=== PATIENT | male | born 1955 | race Caucasian/White ===

== ENCOUNTER → 2018-03-09 | Outpatient (CLI) | payer OTHER ==
[2016-03-20 13:04] VITALS: BP 138/84
[~2018-03-09] MED LIST: BENZ1TAB5 PO; CLON1TAB11 PO; ERGO50007 PO; HALO2TAB PO; HYDR-79 PO; Ibuprofen PO; LEVO50TA5 PO; LEVO75TA5 PO; LITH300C PO; PANT40TA5 PO; POLY17PO29 PO; QUET100T4 PO; QUET200T PO; SIMV40TA3 PO; TAMS0.4C2 PO; TRAZ-85 PO; haldol; lithium
--- NOTE | 2018-03-09 13:25 | RAD ---
Abdominal ultrasound, 03/09/2018: HISTORY: Transaminitis The gallbladder is within normal limits in size. There is no sonographic evidence of cholelithiasis. The common hepatic duct is of normal caliber. The liver is enlarged measuring 19-20 cm in craniocaudad extent at the level of the right lobe. It demonstrates diffusely increased echogenicity, most commonly due to fatty change. No hepatic mass is evident. The pancreas was largely obscured by overlying bowel. The visualized portions of the inferior vena cava and aorta are unremarkable. The spleen is at the upper limits of normal in size measuring 14 cm in greatest dimension. There are calcified splenic granulomata. No renal abnormality is detected. No free fluid is evident in the abdomen. IMPRESSION: 1. Hepatomegaly with increased hepatic echogenicity most compatible with hepatic steatosis. 2. The spleen is at the upper limits of normal in size. 3. The abdomen is otherwise unremarkable. Electronically signed by: Daniel Alvarez MD (03/09/2018 1:22 PM) [facility]
== END | disposition home or self-care (01) ==
LOC: US 09:22
PROVIDERS: ATTEND Family Medicine
DX: D73.89 Other diseases of spleen (principal); R16.0 Hepatomegaly, not elsewhere classified
CPT/HCPCS: 76700

== ENCOUNTER 2019-06-01 09:36 | Inpatient (IN) | payer OTHER ==
[~2019-06-01] VITALS: Ht 190.5 cm; Wt 97.2 kg
[~2019-06-01 09:36] MED LIST changes: +CEPH-264 PO; -CLON1TAB11 PO; +CLONAZEPAM1 MG PO; +CYCL5TAB PO; +GABA-689 PO; -HYDR-79 PO; +HYDROCODONE-IB1 EAC3 PO; +KETO15CR2 TP; -PANT40TA5 PO; +PANT40TA77 PO; +SENN-80 PO; +SIMV40TA18 PO; -SIMV40TA3 PO; +TRAZ-118 PO; -TRAZ-85 PO
[2019-06-01] MEDS ORDERED: MORPHINE SULFATE 4 MG/ML VIAL. IV/SQ PRN (11:15)
[2019-06-01] MEDS ORDERED: VANCOMYCIN PER PHARMACY MC ONE (11:15)
[2019-06-01 11:30] LABS: BASO # 0.1 x10^3/uL (0.0-0.2); BASO % 1 % (0-3); EOS # 0.2 x10^3/uL (0.0-0.7); EOS % 3 % (0-3); HEMATOCRIT 44.5 % (39.0-53.0); HEMOGLOBIN 15.3 g/dL (13.0-17.5); LYMPH # 2.1 x10^3/uL (1.0-4.8); LYMPH % 31 % (24-48); MEAN CORPUSCULAR HEMOGLOBIN 33 pg (25-35); MEAN CORPUSCULAR HGB CONC 34 g/dL (31-37); MEAN CORPUSCULAR VOLUME 95 fL (79-100); MONO # 0.6 x10^3/uL (0.0-1.1); MONO % 9 % (0-9); NEUT # 3.7 x10^3/uL (1.8-7.7); NEUT % 56 % (31-73); PLATELET COUNT 201 x10^3/uL (140-400); RED BLOOD COUNT 4.67 x10^6/uL (4.30-5.70); WHITE BLOOD COUNT 6.7 x10^3/uL (4.0-11.0)
[2019-06-01] MEDS: IV NORMAL SALINE 1000ML BAG 1,000 ML IV SCH ×2 (11:38→12:30)
[2019-06-01 11:43] LABS: CALCIUM 9.3 mg/dL (8.5-10.1); GFR 75.2; POTASSIUM 3.9 mmol/L (3.5-5.1)
[2019-06-01] MEDS ORDERED: PIPERACILLIN/TAZOBACTAM 4.5 GM in IV NORMAL SALINE 100ML 100 ML IV ONE (11:45)
[2019-06-01 11:49] LABS: ALBUMIN 4.3 g/dL (3.4-5.0); ALBUMIN/GLOBULIN RATIO 1.1 (1.0-1.7); TOTAL BILIRUBIN 0.5 mg/dL (0.2-1.0); TOTAL PROTEIN 8.2 g/dL (6.4-8.2)
--- NOTE | 2019-06-01 11:51 | RAD ---
EXAM: Bilateral lower extremity venous Doppler sonogram. HISTORY: Cellulitis. Pain and swelling. TECHNIQUE: Ojeda scale and color Doppler sonographic evaluation of the bilateral lower extremity veins with spectral waveform analysis was performed. FINDINGS: The right peroneal veins are not seen. There is normal color flow, normal compressibility and there are normal spectral waveforms in the remainder of the lower extremity veins. IMPRESSION: No Doppler evidence of lower extremity deep venous thrombosis, with nonvisualization of the right peroneal veins. Electronically signed by: Tamra Staples MD (06/01/2019 11:48 AM) [facility]
[2019-06-01] MEDS ORDERED: VANCOMYCIN 2 GM in IV NORMAL SALINE 500ML BAG 500 ML IV ONE (12:00)
[2019-06-01] MEDS ORDERED: ACETAMINOPHEN 325 MG TABLET. PO PRN (13:30)
[2019-06-01] MEDS ORDERED: MORPHINE SULFATE 4 MG/ML VIAL. IV PRN (13:30)
[2019-06-01] MEDS ORDERED: ONDANSETRON PF 4 MG/2 ML VIAL. IV PRN (13:30)
--- NOTE | 2019-06-01 13:39 | PDOC1 ---
History and Physical Date of Admission Date of Admission DATE: 06/01/19 TIME: 13:38 Identification/Chief Complaint Chief Complaint seen in er , 64 year old male patient with history of CVA, ataxia, primarily was chair use for ambulation, hypertension, who presents to the ED today complaining of bilateral lower extremity redness and swelling that began 2 days ago. reports previous history of cellulitis. Denies any fever. Past Medical History CENTRAL NERVOUS SYSTEM: CVA Psych: Anxiety, Psychosis Infectious disease: Other (cellulitis) Renal/: Benign prostatic enlarg. Endocrine: Diabetes Family History Family History: Heart Disease, Hypertension Social History Smoke: Quit ALCOHOL: none Drugs: None Current Medications Current Medications Current Medications Sodium Chloride 1,000 ml @ 2,550 mls/hr Q24M IV Last administered on 06/01/19at 12:30; Start 06/01/19 at 11:11; Stop 06/01/19 at 12:11; Status DC Piperacillin Sod/ Tazobactam Sod 4.5 gm/Sodium Chloride 100 ml @ 200 mls/hr 1X ONCE IV Last administered on 06/01/19at 12:05; Start 06/01/19 at 11:45; Stop 06/01/19 at 12:14; Status DC Vancomycin HCl (Vanco Per Pharmacy) 1 each 1X ONCE MC ; Start 06/01/19 at 11:15; Stop 06/01/19 at 11:24; Status DC Morphine Sulfate (Morphine Sulfate) 4 mg PRN Q15MIN PRN IV/SQ PAIN GREATER THAN 3/10; Start 06/01/19 at 11:15; Stop 06/02/19 at 11:14 Vancomycin HCl 2 gm/Sodium Chloride 500 ml @ 250 mls/hr 1X ONCE IV Last administered on 06/01/19at 13:05; Start 06/01/19 at 12:00; Stop 06/01/19 at 13:59 Ondansetron HCl (Zofran) 4 mg PRN Q8HRS PRN IV NAUSEA/VOMITING; Start 06/01/19 at 13:30; Stop 06/02/19 at 13:29 Morphine Sulfate (Morphine Sulfate) 4 mg PRN Q2HR PRN IV PAIN; Start 06/01/19 at 13:30; Stop 06/02/19 at 13:29 Acetaminophen (Tylenol) 650 mg PRN Q4HRS PRN PO FEVER; Start 06/01/19 at 13:30; Stop 06/02/19 at 13:29 Active Scripts Active Keflex (Cephalexin) 500 Mg Capsule 1 Cap PO TID Reported Gabapentin (Gabapentin) 400 Mg Capsule 400 Mg PO TID Ketoconazole 15 Gm Cream..g. 1 Yudy TP BID PRN Cyclobenzaprine Hcl 5 Mg Tablet 1 Tab PO BID Senna (Sennosides) 8.6 Mg Tablet 8.6 Mg PO HS Hydrocodone-Ibuprofen 7.5-200 (Hydrocodone/Ibuprofen) 1 Each Tablet 1 Tab PO QID PRN Levothyroxine Sodium 75 Mcg Tablet 75 Mcg PO DAILYAC Pantoprazole Sodium (Pantoprazole Sodium) 40 Mg Tablet.dr 40 Mg PO DAILY Trazodone Hcl 50 Mg Tablet 50 Mg PO DAILY Simvastatin 40 Mg Tablet 40 Mg PO HS Seroquel (Quetiapine Fumarate) 100 Mg Tablet 100 Mg PO HS Allergies Allergies: Coded Allergies: lithium (Verified Allergy, Intermediate, 05/12/16) ROS Review of System Review of Systems Review of Systems Constitutional: Denies fever or chills [] Eyes: Denies change in visual acuity, redness, or eye pain [] HENT: Denies nasal congestion or sore throat [] Respiratory: Denies cough or shortness of breath [] Cardiovascular: No additional information not addressed in HPI [] GI: Denies abdominal pain, nausea, vomiting, bloody stools or diarrhea [] : Denies dysuria or hematuria [] Musculoskeletal: Denies back pain or joint pain [] Integument: Reports bilateral lower extremity redness and swelling Neurologic: Denies headache, focal weakness or sensory changes [] 14 PT systems were reviewed and found to be within normal limits, except as documented Neurological: Yes Gait Disturbance Skin: Yes Rash, Yes Skin Lesion Changes Physical Exam Physical Exam Physical Exam Physical Exam Constitutional: Well developed, well nourished, no acute distress, non-toxic appearance. [] HENT: Normocephalic, atraumatic, bilateral external ears normal, oropharynx moist, no oral exudates, nose normal. [] Eyes: PERRLA, EOMI, conjunctiva normal, no discharge. [] Neck: Normal range of motion, no tenderness, supple, no stridor. [] Cardiovascular:Heart rate regular rhythm, no murmur [] Lungs & Thorax: Bilateral breath sounds clear to auscultation [] Abdomen: Bowel sounds normal, soft, no tenderness, no masses, no pulsatile masses. [] Skin: Right dorsal foot with mild redness consistent with cellulitis. Small amount of similar lesions on the left ventral foot, +1 bilateral pedal pulses. Full range of motion to bilateral lower extremities. Back: No tenderness, no CVA tenderness. [] Neurologic: Alert and oriented X 3, no focal deficits noted. [] Psychologic: Affect normal, judgment normal, mood normal. [] General: Alert, Oriented X3, Cooperative, No acute distress HEENT: EOMI, Mucous membr. moist/pink Lungs: Clear to auscultation, Normal air movement Heart: RRR, no thrills Breasts: Not examined Abdomen: Normal bowel sounds, Soft Rectal Exam: not examined PELVIC: Examination not indicated Extremities: No cyanosis Neuro: Normal speech, Cranial nerves 3-12 NL Psych/Mental Status: Mental status NL Vitals Vitals Vital Signs Date Time Temp Pulse Resp B/P (MAP) Pulse Ox O2 Delivery O2 Flow Rate FiO2 06/01/19 10:27 98.4 77 16 143/87 (105) 99 Room Air 98.4 Labs Labs Laboratory Tests Test 06/01/19 11:12 White Blood Count 6.7 x10^3/uL (4.0-11.0) Red Blood Count 4.67 x10^6/uL (4.30-5.70) Hemoglobin 15.3 g/dL (13.0-17.5) Hematocrit 44.5 % (39.0-53.0) Mean Corpuscular Volume 95 fL (79-100) Mean Corpuscular Hemoglobin 33 pg (25-35) Mean Corpuscular Hemoglobin Concent 34 g/dL (31-37) Red Cell Distribution Width 13.0 % (11.5-14.5) Platelet Count 201 x10^3/uL (140-400) Neutrophils (%) (Auto) 56 % (31-73) Lymphocytes (%) (Auto) 31 % (24-48) Monocytes (%) (Auto) 9 % (0-9) Eosinophils (%) (Auto) 3 % (0-3) Basophils (%) (Auto) 1 % (0-3) Neutrophils # (Auto) 3.7 x10^3/uL (1.8-7.7) Lymphocytes # (Auto) 2.1 x10^3/uL (1.0-4.8) Monocytes # (Auto) 0.6 x10^3/uL (0.0-1.1) Eosinophils # (Auto) 0.2 x10^3/uL (0.0-0.7) Basophils # (Auto) 0.1 x10^3/uL (0.0-0.2) Sodium Level 143 mmol/L (136-145) Potassium Level 3.9 mmol/L (3.5-5.1) Chloride Level 104 mmol/L (98-107) Carbon Dioxide Level 29 mmol/L (21-32) Anion Gap 10 (6-14) Blood Urea Nitrogen 15 mg/dL (8-26) Creatinine 1.0 mg/dL (0.7-1.3) Estimated GFR (Cockcroft-Gault) 75.2 BUN/Creatinine Ratio 15 (6-20) Glucose Level 100 mg/dL (70-99) Lactic Acid Level 1.0 mmol/L (0.4-2.0) Calcium Level 9.3 mg/dL (8.5-10.1) Total Bilirubin 0.5 mg/dL (0.2-1.0) Aspartate Amino Transf (AST/SGOT) 45 U/L (15-37) Alanine Aminotransferase (ALT/SGPT) 78 U/L (16-63) Alkaline Phosphatase 72 U/L (46-116) Total Protein 8.2 g/dL (6.4-8.2) Albumin 4.3 g/dL (3.4-5.0) Albumin/Globulin Ratio 1.1 (1.0-1.7) Procalcitonin < 0.10 ng/mL (0.00-0.10) Laboratory Tests Test 06/01/19 11:12 White Blood Count 6.7 x10^3/uL (4.0-11.0) Red Blood Count 4.67 x10^6/uL (4.30-5.70) Hemoglobin 15.3 g/dL (13.0-17.5) Hematocrit 44.5 % (39.0-53.0) Mean Corpuscular Volume 95 fL (79-100) Mean Corpuscular Hemoglobin 33 pg (25-35) Mean Corpuscular Hemoglobin Concent 34 g/dL (31-37) Red Cell Distribution Width 13.0 % (11.5-14.5) Platelet Count 201 x10^3/uL (140-400) Neutrophils (%) (Auto) 56 % (31-73) Lymphocytes (%) (Auto) 31 % (24-48) Monocytes (%) (Auto) 9 % (0-9) Eosinophils (%) (Auto) 3 % (0-3) Basophils (%) (Auto) 1 % (0-3) Neutrophils # (Auto) 3.7 x10^3/uL (1.8-7.7) Lymphocytes # (Auto) 2.1 x10^3/uL (1.0-4.8) Monocytes # (Auto) 0.6 x10^3/uL (0.0-1.1) Eosinophils # (Auto) 0.2 x10^3/uL (0.0-0.7) Basophils # (Auto) 0.1 x10^3/uL (0.0-0.2) Sodium Level 143 mmol/L (136-145) Potassium Level 3.9 mmol/L (3.5-5.1) Chloride Level 104 mmol/L (98-107) Carbon Dioxide Level 29 mmol/L (21-32) Anion Gap 10 (6-14) Blood Urea Nitrogen 15 mg/dL (8-26) Creatinine 1.0 mg/dL (0.7-1.3) Estimated GFR (Cockcroft-Gault) 75.2 BUN/Creatinine Ratio 15 (6-20) Glucose Level 100 mg/dL (70-99) Lactic Acid Level 1.0 mmol/L (0.4-2.0) Calcium Level 9.3 mg/dL (8.5-10.1) Total Bilirubin 0.5 mg/dL (0.2-1.0) Aspartate Amino Transf (AST/SGOT) 45 U/L (15-37) Alanine Aminotransferase (ALT/SGPT) 78 U/L (16-63) Alkaline Phosphatase 72 U/L (46-116) Total Protein 8.2 g/dL (6.4-8.2) Albumin 4.3 g/dL (3.4-5.0) Albumin/Globulin Ratio 1.1 (1.0-1.7) Procalcitonin < 0.10 ng/mL (0.00-0.10) Images Images EXAM: Bilateral lower extremity venous Doppler sonogram. HISTORY: Cellulitis. Pain and swelling. TECHNIQUE: Ojeda scale and color Doppler sonographic evaluation of the bilateral lower extremity veins with spectral waveform analysis was performed. FINDINGS: The right peroneal veins are not seen. There is normal color flow, normal compressibility and there are normal spectral waveforms in the remainder of the lower extremity veins. IMPRESSION: No Doppler evidence of lower extremity deep venous thrombosis, with nonvisualization of the right peroneal veins. Electronically signed by: Tamra Farrar MD (06/01/2019 11:48 AM) [facility] [place] DICTATED and SIGNED BY: TAMRA FARRAR MD DATE: 06/01/19 1148 PATIENT: WILLIAM STONER ACCOUNT: [id number] : 1955 LOCATION: [address] [place] [address] AGE: 64 SEX: M EXAM STATUS: ADM IN ORD. PHYSICIAN: ZULMA CHAPMAN MD REASON: PVD PROCEDURE: DUPLEX LOWER EXTREMITY BILAT DUPLEX LOWER EXTREMITY BILAT Indication: Peripheral vascular disease. Comparison: None. Procedure: Real-time grayscale, color flow Doppler, and Doppler spectral waveform analysis of the arterial system of the lower extremity is performed. Findings: Right lower extremity: No evidence of velocity elevation to suggest stenosis. Monophasic waveform within the right posterior tibial, peroneal, anterior tibial and dorsalis pedis arteries. Triphasic throughout the remainder of the right lower extremity. Left lower extremity: No evidence of velocity elevation to suggest stenosis. Triphasic or biphasic waveforms throughout the left lower extremity. IMPRESSION: 1. 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
[2019-06-01 14:45] VITALS: BP 146/80
--- NOTE | 2019-06-01 15:31 | PHYS DOC ---
Past Medical History Past Medical History: Bipolar, CVA, GERD, High Cholesterol, Hypothyroid, Hepatitis, Prostatitis Additional Past Medical Histor: TRUNCAL ATAXIA, ENCEPHALOPATHY,URINARY OBS,INSOMNIA, NEUROPATHY, LITHIUMTOX Past Surgical History: Appendectomy Additional Past Surgical Histo: unknown Alcohol Use: Rarely Drug Use: None Adult General Chief Complaint Chief Complaint: LOWER EXTREMITY SWELLING HPI HPI Patient is a 64 year old male patient with history of CVA, ataxia, primarily was chair use for ambulation, hypertension, who presents to the ED today complaining of bilateral lower extremity redness and swelling that began 2 days ago. Patient reports previous history of cellulitis. Denies any fever. Review of Systems Review of Systems Constitutional: Denies fever or chills [] Eyes: Denies change in visual acuity, redness, or eye pain [] HENT: Denies nasal congestion or sore throat [] Respiratory: Denies cough or shortness of breath [] Cardiovascular: No additional information not addressed in HPI [] GI: Denies abdominal pain, nausea, vomiting, bloody stools or diarrhea [] : Denies dysuria or hematuria [] Musculoskeletal: Denies back pain or joint pain [] Integument: Reports bilateral lower extremity redness and swelling Neurologic: Denies headache, focal weakness or sensory changes [] All other systems were reviewed and found to be within normal limits, except as documented in this note. Current Medications Current Medications Current Medications Medications (Trade) Dose Ordered Sig/Kleber Start Time Stop Time Status Last Admin Dose Admin Morphine Sulfate (Morphine Sulfate) 4 mg PRN Q15MIN PRN 06/01/19 11:15 06/02/19 11:14 Piperacillin Sod/ Tazobactam Sod 4.5 gm/Sodium Chloride 100 ml @ 200 mls/hr 1X ONCE 06/01/19 11:45 06/01/19 12:14 DC 06/01/19 12:05 200 MLS/HR Sodium Chloride 1,000 ml @ 2,550 mls/hr Q24M 06/01/19 11:11 06/01/19 12:11 DC 06/01/19 12:30 2,550 MLS/HR Vancomycin HCl (Vanco Per Pharmacy) 1 each 1X ONCE 06/01/19 11:15 06/01/19 11:24 DC Vancomycin HCl 2 gm/Sodium Chloride 500 ml @ 250 mls/hr 1X ONCE 06/01/19 12:00 06/01/19 13:59 DC 06/01/19 13:05 250 MLS/HR Allergies Allergies Allergies Coded Allergies Type Severity Reaction Last Updated Verified lithium Allergy Intermediate 05/12/16 Yes Physical Exam Physical Exam Constitutional: Well developed, well nourished, no acute distress, non-toxic appearance. [] HENT: Normocephalic, atraumatic, bilateral external ears normal, oropharynx moist, no oral exudates, nose normal. [] Eyes: PERRLA, EOMI, conjunctiva normal, no discharge. [] Neck: Normal range of motion, no tenderness, supple, no stridor. [] Cardiovascular:Heart rate regular rhythm, no murmur [] Lungs & Thorax: Bilateral breath sounds clear to auscultation [] Abdomen: Bowel sounds normal, soft, no tenderness, no masses, no pulsatile masses. [] Skin: Right dorsal foot with mild redness consistent with cellulitis. Small amount of similar lesions on the left ventral foot, +1 bilateral pedal pulses. Full range of motion to bilateral lower extremities. Back: No tenderness, no CVA tenderness. [] Extremities: No tenderness, no cyanosis, no clubbing, ROM intact, no edema. [] Neurologic: Alert and oriented X 3, normal motor function, normal sensory function, no focal deficits noted. [] Psychologic: Affect normal, judgement normal, mood normal. [] Current Patient Data Vital Signs Vital Signs Date Time Temp Pulse Resp B/P (MAP) Pulse Ox O2 Delivery O2 Flow Rate FiO2 06/01/19 12:33 57 20 122/74 (90) 96 Room Air 06/01/19 10:27 98.4 98.4 Lab Values Laboratory Tests Test 06/01/19 11:12 White Blood Count 6.7 x10^3/uL (4.0-11.0) Red Blood Count 4.67 x10^6/uL (4.30-5.70) Hemoglobin 15.3 g/dL (13.0-17.5) Hematocrit 44.5 % (39.0-53.0) Mean Corpuscular Volume 95 fL (79-100) Mean Corpuscular Hemoglobin 33 pg (25-35) Mean Corpuscular Hemoglobin Concent 34 g/dL (31-37) Red Cell Distribution Width 13.0 % (11.5-14.5) Platelet Count 201 x10^3/uL (140-400) Neutrophils (%) (Auto) 56 % (31-73) Lymphocytes (%) (Auto) 31 % (24-48) Monocytes (%) (Auto) 9 % (0-9) Eosinophils (%) (Auto) 3 % (0-3) Basophils (%) (Auto) 1 % (0-3) Neutrophils # (Auto) 3.7 x10^3/uL (1.8-7.7) Lymphocytes # (Auto) 2.1 x10^3/uL (1.0-4.8) Monocytes # (Auto) 0.6 x10^3/uL (0.0-1.1) Eosinophils # (Auto) 0.2 x10^3/uL (0.0-0.7) Basophils # (Auto) 0.1 x10^3/uL (0.0-0.2) Erythrocyte Sedimentation Rate 10 (0-15) Sodium Level 143 mmol/L (136-145) Potassium Level 3.9 mmol/L (3.5-5.1) Chloride Level 104 mmol/L (98-107) Carbon Dioxide Level 29 mmol/L (21-32) Anion Gap 10 (6-14) Blood Urea Nitrogen 15 mg/dL (8-26) Creatinine 1.0 mg/dL (0.7-1.3) Estimated GFR (Cockcroft-Gault) 75.2 BUN/Creatinine Ratio 15 (6-20) Glucose Level 100 mg/dL (70-99) H Lactic Acid Level 1.0 mmol/L (0.4-2.0) Calcium Level 9.3 mg/dL (8.5-10.1) Total Bilirubin 0.5 mg/dL (0.2-1.0) Aspartate Amino Transferase (AST) 45 U/L (15-37) H Alanine Aminotransferase (ALT) 78 U/L (16-63) H Alkaline Phosphatase 72 U/L (46-116) C-Reactive Protein, Quantitative 4.5 mg/L (0-3.3) H Total Protein 8.2 g/dL (6.4-8.2) Albumin 4.3 g/dL (3.4-5.0) Albumin/Globulin Ratio 1.1 (1.0-1.7) Procalcitonin < 0.10 ng/mL (0.00-0.10) Laboratory Tests 06/01/19 11:12 Laboratory Tests 06/01/19 11:12 EKG EKG [] Radiology/Procedures Radiology/Procedures []PROCEDURE: VENOUS LOWER EXT BILATERAL EXAM: Bilateral lower extremity venous Doppler sonogram. HISTORY: Cellulitis. Pain and swelling. TECHNIQUE: Ojeda scale and color Doppler sonographic evaluation of the bilateral lower extremity veins with spectral waveform analysis was performed. FINDINGS: The right peroneal veins are not seen. There is normal color flow, normal compressibility and there are normal spectral waveforms in the remainder of the lower extremity veins. IMPRESSION: No Doppler evidence of lower extremity deep venous thrombosis, with nonvisualization of the right peroneal veins. Electronically signed by: Tamra Farrar MD (06/01/2019 11:48 AM) [facility] [place] DICTATED and SIGNED BY: TAMRA FARRAR MD DATE: 06/01/19 1148 Course & Med Decision Making Course & Med Decision Making Pertinent Labs and Imaging studies reviewed. (See chart for details) This is a 64-year-old male patient presenting to the ED today with bilateral lower extremity cellulitis. Venous Doppler of bilateral low extremity are negative for any acute findings. CBC with a normal WBC, lactic is normal, CMP with nothing really acute sedimentation rate is normal, CRP 4.5. He was started on antibiotics in the ED. Spoke with Dr. Mae who accepted patient for admission. Dragon Disclaimer Dragon Disclaimer This electronic medical record was generated, in whole or in part, using a voice recognition dictation system. Departure Departure Impression: Primary Impression: Bilateral lower leg cellulitis Disposition: ADMITTED INPATIENT Condition: STABLE Referrals: LESVIA BURGOS MD (PCP) SHIRLENE WILSON APRN Jun 01, 2019 15:31
--- NOTE | 2019-06-01 16:28 | RAD ---
DUPLEX LOWER EXTREMITY BILAT Indication: Peripheral vascular disease. Comparison: None. Procedure: Real-time grayscale, color flow Doppler, and Doppler spectral waveform analysis of the arterial system of the lower extremity is performed. Findings: Right lower extremity: No evidence of velocity elevation to suggest stenosis. Monophasic waveform within the right posterior tibial, peroneal, anterior tibial and dorsalis pedis arteries. Triphasic throughout the remainder of the right lower extremity. Left lower extremity: No evidence of velocity elevation to suggest stenosis. Triphasic or biphasic waveforms throughout the left lower extremity. IMPRESSION: 1. Monophasic waveform within the right posterior tibial, peroneal, anterior tibial and dorsalis pedis arteries, may indicate proximal stenosis Electronically signed by: Shorty Pearce DO (06/01/2019 4:26 PM) [facility]
[2019-06-01 19:00] VITALS: BP 145/87
[2019-06-01] MEDS ORDERED: HYDROcodone/APAP 5/325MG 1 TAB TABLET PO PRN (20:00)
[2019-06-01] MEDS: SIMVASTATIN 40 MG TABLET. PO SCH (20:14)
[2019-06-01] MEDS: QUEtiapine 100 MG TABLET. PO SCH (20:17)
[2019-06-01] MEDS: GABAPENTIN 400 MG CAPSULE. PO SCH (20:17)
[2019-06-01] MEDS: SENNOSIDES 8.6 MG TABLET PO SCH (20:17)
[2019-06-01] MEDS: CYCLOBENZAPRINE 10 MG TABLET. PO SCH (20:18)
[2019-06-01] MEDS: traZODone 50 MG TABLET. PO SCH (20:56)
[2019-06-01 22:31] VITALS: BP 87/45
[2019-06-02 03:00] VITALS: BP 114/73
[2019-06-02 04:50] LABS: BASO # 0.1 x10^3/uL (0.0-0.2); BASO % 1 % (0-3); EOS # 0.2 x10^3/uL (0.0-0.7); EOS % 4 % (0-3); HEMATOCRIT 38.6 % (39.0-53.0); HEMOGLOBIN 13.3 g/dL (13.0-17.5); LYMPH # 2.1 x10^3/uL (1.0-4.8); LYMPH % 33 % (24-48); MEAN CORPUSCULAR HEMOGLOBIN 33 pg (25-35); MEAN CORPUSCULAR HGB CONC 34 g/dL (31-37); MEAN CORPUSCULAR VOLUME 96 fL (79-100); MONO # 0.5 x10^3/uL (0.0-1.1); MONO % 9 % (0-9); NEUT # 3.3 x10^3/uL (1.8-7.7); NEUT % 53 % (31-73); PLATELET COUNT 189 x10^3/uL (140-400); RED BLOOD COUNT 4.04 x10^6/uL (4.30-5.70); RED CELL DISTRIBUTION WIDTH 12.7 % (11.5-14.5); WHITE BLOOD COUNT 6.2 x10^3/uL (4.0-11.0)
[2019-06-02 07:00] VITALS: BP 118/70
[2019-06-02] MEDS ORDERED: traZODone 50 MG TABLET. PO SCH (09:00)
[2019-06-02] MEDS: LEVOTHYROXINE 75 MCG TABLET PO SCH (09:43)
[2019-06-02] MEDS: CYCLOBENZAPRINE 10 MG TABLET. PO SCH ×2 (09:43→20:27)
[2019-06-02] MEDS: GABAPENTIN 400 MG CAPSULE. PO SCH ×3 (09:43→20:27)
[2019-06-02] MEDS: PANTOPRAZOLE 40 MG TABLET.DR. PO SCH (09:44)
--- NOTE | 2019-06-02 09:50 | PDOC ---
Infectious Disease Note Vital Sign Vital Signs Vital Signs Date Time Temp Pulse Resp B/P (MAP) Pulse Ox O2 Delivery O2 Flow Rate FiO2 06/02/19 07:00 97.8 66 16 118/70 (86) 93 Room Air 97.8 Labs Lab Laboratory Tests Test 06/01/19 11:12 06/02/19 03:40 White Blood Count 6.7 x10^3/uL (4.0-11.0) 6.2 x10^3/uL (4.0-11.0) Red Blood Count 4.67 x10^6/uL (4.30-5.70) 4.04 x10^6/uL (4.30-5.70) Hemoglobin 15.3 g/dL (13.0-17.5) 13.3 g/dL (13.0-17.5) Hematocrit 44.5 % (39.0-53.0) 38.6 % (39.0-53.0) Mean Corpuscular Volume 95 fL (79-100) 96 fL (79-100) Mean Corpuscular Hemoglobin 33 pg (25-35) 33 pg (25-35) Mean Corpuscular Hemoglobin Concent 34 g/dL (31-37) 34 g/dL (31-37) Red Cell Distribution Width 13.0 % (11.5-14.5) 12.7 % (11.5-14.5) Platelet Count 201 x10^3/uL (140-400) 189 x10^3/uL (140-400) Neutrophils (%) (Auto) 56 % (31-73) 53 % (31-73) Lymphocytes (%) (Auto) 31 % (24-48) 33 % (24-48) Monocytes (%) (Auto) 9 % (0-9) 9 % (0-9) Eosinophils (%) (Auto) 3 % (0-3) 4 % (0-3) Basophils (%) (Auto) 1 % (0-3) 1 % (0-3) Neutrophils # (Auto) 3.7 x10^3/uL (1.8-7.7) 3.3 x10^3/uL (1.8-7.7) Lymphocytes # (Auto) 2.1 x10^3/uL (1.0-4.8) 2.1 x10^3/uL (1.0-4.8) Monocytes # (Auto) 0.6 x10^3/uL (0.0-1.1) 0.5 x10^3/uL (0.0-1.1) Eosinophils # (Auto) 0.2 x10^3/uL (0.0-0.7) 0.2 x10^3/uL (0.0-0.7) Basophils # (Auto) 0.1 x10^3/uL (0.0-0.2) 0.1 x10^3/uL (0.0-0.2) Erythrocyte Sedimentation Rate 10 (0-15) Sodium Level 143 mmol/L (136-145) Potassium Level 3.9 mmol/L (3.5-5.1) Chloride Level 104 mmol/L (98-107) Carbon Dioxide Level 29 mmol/L (21-32) Anion Gap 10 (6-14) Blood Urea Nitrogen 15 mg/dL (8-26) Creatinine 1.0 mg/dL (0.7-1.3) Estimated GFR (Cockcroft-Gault) 75.2 BUN/Creatinine Ratio 15 (6-20) Glucose Level 100 mg/dL (70-99) Lactic Acid Level 1.0 mmol/L (0.4-2.0) Calcium Level 9.3 mg/dL (8.5-10.1) Total Bilirubin 0.5 mg/dL (0.2-1.0) Aspartate Amino Transf (AST/SGOT) 45 U/L (15-37) Alanine Aminotransferase (ALT/SGPT) 78 U/L (16-63) Alkaline Phosphatase 72 U/L (46-116) C-Reactive Protein, Quantitative 4.5 mg/L (0-3.3) Total Protein 8.2 g/dL (6.4-8.2) Albumin 4.3 g/dL (3.4-5.0) Albumin/Globulin Ratio 1.1 (1.0-1.7) Procalcitonin < 0.10 ng/mL (0.00-0.10) Objective Assessment pt seen, consult dictated Plan Plan of Care / SHIRLEY RAVI MD Jun 02, 2019 09:50
[2019-06-02] MEDS ORDERED: MINERAL OIL/PETROLATUM TOPICAL CREAM 113GM JAR. TP PRN (10:00)
--- NOTE | 2019-06-02 10:24 | CONS ---
DATE OF CONSULTATION: 06/02/2019 REQUESTING PHYSICIAN: Reagan Mae MD REASON FOR CONSULTATION: Bilateral lower extremity cellulitis. HISTORY OF PRESENT ILLNESS: This is a 64-year-old gentleman with truncal ataxia, bipolar disorder, who came in with bilateral dorsal surface of the feet, red, swollen. The patient says if he does not look at it, if he does not know it was red, he does not have any pain, but he feels like he has some pain when he looks at it and he knows it is a mental thing. The patient denies any fever. Denies any nausea, vomiting, diarrhea. Denies any trauma. He does admit he may have been scratching. He does wear his old tennis shoes all the time. The patient denies any other complaints. PAST MEDICAL HISTORY: Positive for truncal ataxia. History of encephalopathy, CVA, gastroesophageal reflux disease, bipolar disorder, hypothyroidism, hyperlipidemia, prostatism, neuropathy. Has had appendicectomy. SOCIAL HISTORY: Negative for smoking, alcohol, illicit drug use. ALLERGIES: HE IS LISTED ALLERGIC TO LITHIUM. CURRENT MEDICATIONS: Reviewed. The patient is on vancomycin. REVIEW OF SYSTEMS: As per the HPI, all other systems reviewed and are negative. PHYSICAL EXAMINATION: GENERAL: Alert and oriented gentleman, not in distress. VITAL SIGNS: Stable, afebrile. HEENT: NAD. NECK: Supple, no JVP, no lymphadenopathy. LUNGS: Clear. HEART: S1, S2 regular. ABDOMEN: Soft, nontender. No organomegaly. EXTREMITIES: Bilateral lower extremity has a dry flaky skin onto the dorsum of the feet with a coarse texture. It is red, swollen, minimal warmth to it. There is no other skin breakdown. No tinea infection between the toes. NEUROLOGIC: The patient is able to move all the extremities. No focal deficit. LABORATORY DATA: White count is 6.2, hemoglobin 13.3, platelets are normal. Sed rate is 10. BUN and creatinine is normal. Lactic acid 1. AST 45, ALT 78. Ultrasound of the lower extremity is unremarkable. IMPRESSION: 1. Bilateral feet at the dorsum redness. This is not classic cellulitis. It could be contact dermatitis. It could be secondary to the scratching. 2. Truncal ataxia. 3. Bipolar disorder. 4. Cerebrovascular accident. 5. Gastroesophageal reflux disease. RECOMMEND: We will use Rocephin IV and steroid cream locally. Supportive care, leg elevation and we will continue to follow. Thank you very much, Dr. Mae, for giving me the opportunity to participate in this patient's care. SHIRLEY RAVI MD DR: ASAD/josephine JOB#: [id number] / [id number]
--- NOTE | 2019-06-02 10:41 | NUR ---
SW following. Discussed with RN, pt from home alone with cat. Pt uses a motorized scooter at home, uses the bus to get around. Pt concerned about anticipated discharge as the buses for him do not run at the weekend. RN advised pt not to worry, just focus on getting better, and [facility] will be able to assist with transportation home if pt discharges at the weekend. Pt on IV abx currently. SW will continue to follow.
[2019-06-02 11:00] VITALS: BP 101/57
--- NOTE | 2019-06-02 11:05 | PDOC ---
PROGRESS NOTES History of Present Illness History of Present Illness VTE Prophylaxis Ordered VTE Prophylaxis Devices: Yes VTE Pharmacological Prophylaxi: Yes Assessment/Plan Assessment/Plan IMPRESSION: Monophasic waveform within the right posterior tibial, peroneal, anterior tibial and dorsalis pedis arteries, may indicate proximal stenosis by doppler 06/01 Cellulitis both FEET , ACUTE RIGHT > LEFT HX SCHIZOPHRENIA Hx of [place] toxicity with persistent discoordination, disequilibrium: recent MRI shows cerebellar atrophy Bipolar disease with depression and anxiety: cont home meds Anemia - likely of chronic disease BPH - cont meds Cerebellar ataxia - known history, plan admit PT/OT id consult vascular surgery consult iv antibiotics, emperic DVT PROPHYLAXIS cont home meds D/W RN Vitals Vitals Vital Signs Date Time Temp Pulse Resp B/P (MAP) Pulse Ox O2 Delivery O2 Flow Rate FiO2 06/02/19 07:00 97.8 66 16 118/70 (86) 93 Room Air 97.8 Physical Exam General: Alert, Oriented X3, Cooperative, No acute distress Lungs: Clear, Other Abdomen: Normal bowel sounds, Soft Extremities: No cyanosis Labs LABS DUPLEX LOWER EXTREMITY BILAT Indication: Peripheral vascular disease. Comparison: None. Procedure: Real-time grayscale, color flow Doppler, and Doppler spectral waveform analysis of the arterial system of the lower extremity is performed. Findings: Right lower extremity: No evidence of velocity elevation to suggest stenosis. Monophasic waveform within the right posterior tibial, peroneal, anterior tibial and dorsalis pedis arteries. Triphasic throughout the remainder of the right lower extremity. Left lower extremity: No evidence of velocity elevation to suggest stenosis. Triphasic or biphasic waveforms throughout the left lower extremity. IMPRESSION: 1. Monophasic waveform within the right posterior tibial, peroneal, anterior tibial and dorsalis pedis arteries, may indicate proximal stenosis Electronically signed by: Shorty Palencia DO (06/01/2019 4:26 PM) [facility] DICTATED and SIGNED BY: SHORTY PALENCIA DO DATE: 06/01/19 1626 Laboratory Tests Test 06/01/19 11:12 06/02/19 03:40 White Blood Count 6.7 x10^3/uL (4.0-11.0) 6.2 x10^3/uL (4.0-11.0) Red Blood Count 4.67 x10^6/uL (4.30-5.70) 4.04 x10^6/uL (4.30-5.70) Hemoglobin 15.3 g/dL (13.0-17.5) 13.3 g/dL (13.0-17.5) Hematocrit 44.5 % (39.0-53.0) 38.6 % (39.0-53.0) Mean Corpuscular Volume 95 fL (79-100) 96 fL (79-100) Mean Corpuscular Hemoglobin 33 pg (25-35) 33 pg (25-35) Mean Corpuscular Hemoglobin Concent 34 g/dL (31-37) 34 g/dL (31-37) Red Cell Distribution Width 13.0 % (11.5-14.5) 12.7 % (11.5-14.5) Platelet Count 201 x10^3/uL (140-400) 189 x10^3/uL (140-400) Neutrophils (%) (Auto) 56 % (31-73) 53 % (31-73) Lymphocytes (%) (Auto) 31 % (24-48) 33 % (24-48) Monocytes (%) (Auto) 9 % (0-9) 9 % (0-9) Eosinophils (%) (Auto) 3 % (0-3) 4 % (0-3) Basophils (%) (Auto) 1 % (0-3) 1 % (0-3) Neutrophils # (Auto) 3.7 x10^3/uL (1.8-7.7) 3.3 x10^3/uL (1.8-7.7) Lymphocytes # (Auto) 2.1 x10^3/uL (1.0-4.8) 2.1 x10^3/uL (1.0-4.8) Monocytes # (Auto) 0.6 x10^3/uL (0.0-1.1) 0.5 x10^3/uL (0.0-1.1) Eosinophils # (Auto) 0.2 x10^3/uL (0.0-0.7) 0.2 x10^3/uL (0.0-0.7) Basophils # (Auto) 0.1 x10^3/uL (0.0-0.2) 0.1 x10^3/uL (0.0-0.2) Erythrocyte Sedimentation Rate 10 (0-15) Sodium Level 143 mmol/L (136-145) Potassium Level 3.9 mmol/L (3.5-5.1) Chloride Level 104 mmol/L (98-107) Carbon Dioxide Level 29 mmol/L (21-32) Anion Gap 10 (6-14) Blood Urea Nitrogen 15 mg/dL (8-26) Creatinine 1.0 mg/dL (0.7-1.3) Estimated GFR (Cockcroft-Gault) 75.2 BUN/Creatinine Ratio 15 (6-20) Glucose Level 100 mg/dL (70-99) Lactic Acid Level 1.0 mmol/L (0.4-2.0) Calcium Level 9.3 mg/dL (8.5-10.1) Total Bilirubin 0.5 mg/dL (0.2-1.0) Aspartate Amino Transf (AST/SGOT) 45 U/L (15-37) Alanine Aminotransferase (ALT/SGPT) 78 U/L (16-63) Alkaline Phosphatase 72 U/L (46-116) C-Reactive Protein, Quantitative 4.5 mg/L (0-3.3) Total Protein 8.2 g/dL (6.4-8.2) Albumin 4.3 g/dL (3.4-5.0) Albumin/Globulin Ratio 1.1 (1.0-1.7) Procalcitonin < 0.10 ng/mL (0.00-0.10) Assessment and Plan Assessmemt and Plan Problems Medical Problems: (1) Bilateral lower leg cellulitis Status: Acute Comment Review of Relevant I have reviewed the following items cornelio (where applicable) has been applied. Labs Laboratory Tests Test 06/01/19 11:12 06/02/19 03:40 White Blood Count 6.7 x10^3/uL (4.0-11.0) 6.2 x10^3/uL (4.0-11.0) Red Blood Count 4.67 x10^6/uL (4.30-5.70) 4.04 x10^6/uL (4.30-5.70) Hemoglobin 15.3 g/dL (13.0-17.5) 13.3 g/dL (13.0-17.5) Hematocrit 44.5 % (39.0-53.0) 38.6 % (39.0-53.0) Mean Corpuscular Volume 95 fL (79-100) 96 fL (79-100) Mean Corpuscular Hemoglobin 33 pg (25-35) 33 pg (25-35) Mean Corpuscular Hemoglobin Concent 34 g/dL (31-37) 34 g/dL (31-37) Red Cell Distribution Width 13.0 % (11.5-14.5) 12.7 % (11.5-14.5) Platelet Count 201 x10^3/uL (140-400) 189 x10^3/uL (140-400) Neutrophils (%) (Auto) 56 % (31-73) 53 % (31-73) Lymphocytes (%) (Auto) 31 % (24-48) 33 % (24-48) Monocytes (%) (Auto) 9 % (0-9) 9 % (0-9) Eosinophils (%) (Auto) 3 % (0-3) 4 % (0-3) Basophils (%) (Auto) 1 % (0-3) 1 % (0-3) Neutrophils # (Auto) 3.7 x10^3/uL (1.8-7.7) 3.3 x10^3/uL (1.8-7.7) Lymphocytes # (Auto) 2.1 x10^3/uL (1.0-4.8) 2.1 x10^3/uL (1.0-4.8) Monocytes # (Auto) 0.6 x10^3/uL (0.0-1.1) 0.5 x10^3/uL (0.0-1.1) Eosinophils # (Auto) 0.2 x10^3/uL (0.0-0.7) 0.2 x10^3/uL (0.0-0.7) Basophils # (Auto) 0.1 x10^3/uL (0.0-0.2) 0.1 x10^3/uL (0.0-0.2) Erythrocyte Sedimentation Rate 10 (0-15) Sodium Level 143 mmol/L (136-145) Potassium Level 3.9 mmol/L (3.5-5.1) Chloride Level 104 mmol/L (98-107) Carbon Dioxide Level 29 mmol/L (21-32) Anion Gap 10 (6-14) Blood Urea Nitrogen 15 mg/dL (8-26) Creatinine 1.0 mg/dL (0.7-1.3) Estimated GFR (Cockcroft-Gault) 75.2 BUN/Creatinine Ratio 15 (6-20) Glucose Level 100 mg/dL (70-99) Lactic Acid Level 1.0 mmol/L (0.4-2.0) Calcium Level 9.3 mg/dL (8.5-10.1) Total Bilirubin 0.5 mg/dL (0.2-1.0) Aspartate Amino Transf (AST/SGOT) 45 U/L (15-37) Alanine Aminotransferase (ALT/SGPT) 78 U/L (16-63) Alkaline Phosphatase 72 U/L (46-116) C-Reactive Protein, Quantitative 4.5 mg/L (0-3.3) Total Protein 8.2 g/dL (6.4-8.2) Albumin 4.3 g/dL (3.4-5.0) Albumin/Globulin Ratio 1.1 (1.0-1.7) Procalcitonin < 0.10 ng/mL (0.00-0.10) Laboratory Tests Test 06/01/19 11:12 06/02/19 03:40 White Blood Count 6.7 x10^3/uL (4.0-11.0) 6.2 x10^3/uL (4.0-11.0) Red Blood Count 4.67 x10^6/uL (4.30-5.70) 4.04 x10^6/uL (4.30-5.70) Hemoglobin 15.3 g/dL (13.0-17.5) 13.3 g/dL (13.0-17.5) Hematocrit 44.5 % (39.0-53.0) 38.6 % (39.0-53.0) Mean Corpuscular Volume 95 fL (79-100) 96 fL (79-100) Mean Corpuscular Hemoglobin 33 pg (25-35) 33 pg (25-35) Mean Corpuscular Hemoglobin Concent 34 g/dL (31-37) 34 g/dL (31-37) Red Cell Distribution Width 13.0 % (11.5-14.5) 12.7 % (11.5-14.5) Platelet Count 201 x10^3/uL (140-400) 189 x10^3/uL (140-400) Neutrophils (%) (Auto) 56 % (31-73) 53 % (31-73) Lymphocytes (%) (Auto) 31 % (24-48) 33 % (24-48) Monocytes (%) (Auto) 9 % (0-9) 9 % (0-9) Eosinophils (%) (Auto) 3 % (0-3) 4 % (0-3) Basophils (%) (Auto) 1 % (0-3) 1 % (0-3) Neutrophils # (Auto) 3.7 x10^3/uL (1.8-7.7) 3.3 x10^3/uL (1.8-7.7) Lymphocytes # (Auto) 2.1 x10^3/uL (1.0-4.8) 2.1 x10^3/uL (1.0-4.8) Monocytes # (Auto) 0.6 x10^3/uL (0.0-1.1) 0.5 x10^3/uL (0.0-1.1) Eosinophils # (Auto) 0.2 x10^3/uL (0.0-0.7) 0.2 x10^3/uL (0.0-0.7) Basophils # (Auto) 0.1 x10^3/uL (0.0-0.2) 0.1 x10^3/uL (0.0-0.2) Erythrocyte Sedimentation Rate 10 (0-15) Sodium Level 143 mmol/L (136-145) Potassium Level 3.9 mmol/L (3.5-5.1) Chloride Level 104 mmol/L (98-107) Carbon Dioxide Level 29 mmol/L (21-32) Anion Gap 10 (6-14) Blood Urea Nitrogen 15 mg/dL (8-26) Creatinine 1.0 mg/dL (0.7-1.3) Estimated GFR (Cockcroft-Gault) 75.2 BUN/Creatinine Ratio 15 (6-20) Glucose Level 100 mg/dL (70-99) Lactic Acid Level 1.0 mmol/L (0.4-2.0) Calcium Level 9.3 mg/dL (8.5-10.1) Total Bilirubin 0.5 mg/dL (0.2-1.0) Aspartate Amino Transf (AST/SGOT) 45 U/L (15-37) Alanine Aminotransferase (ALT/SGPT) 78 U/L (16-63) Alkaline Phosphatase 72 U/L (46-116) C-Reactive Protein, Quantitative 4.5 mg/L (0-3.3) Total Protein 8.2 g/dL (6.4-8.2) Albumin 4.3 g/dL (3.4-5.0) Albumin/Globulin Ratio 1.1 (1.0-1.7) Procalcitonin < 0.10 ng/mL (0.00-0.10) Medications Current Medications Sodium Chloride 1,000 ml @ 2,550 mls/hr Q24M IV Last administered on 06/01/19at 12:30; Start 06/01/19 at 11:11; Stop 06/01/19 at 12:11; Status DC Piperacillin Sod/ Tazobactam Sod 4.5 gm/Sodium Chloride 100 ml @ 200 mls/hr 1X ONCE IV Last administered on 06/01/19at 12:05; Start 06/01/19 at 11:45; Stop 06/01/19 at 12:14; Status DC Vancomycin HCl (Vanco Per Pharmacy) 1 each 1X ONCE MC ; Start 06/01/19 at 11:15; Stop 06/02/19 at 09:50; Status DC Morphine Sulfate (Morphine Sulfate) 4 mg PRN Q15MIN PRN IV/SQ PAIN GREATER THAN 3/10; Start 06/01/19 at 11:15; Stop 06/02/19 at 11:14 Vancomycin HCl 2 gm/Sodium Chloride 500 ml @ 250 mls/hr 1X ONCE IV Last administered on 06/01/19at 13:05; Start 06/01/19 at 12:00; Stop 06/01/19 at 13:59; Status DC Ondansetron HCl (Zofran) 4 mg PRN Q8HRS PRN IV NAUSEA/VOMITING; Start 06/01/19 at 13:30; Stop 06/02/19 at 13:29 Morphine Sulfate (Morphine Sulfate) 4 mg PRN Q2HR PRN IV PAIN; Start 06/01/19 at 13:30; Stop 06/02/19 at 13:29 Acetaminophen (Tylenol) 650 mg PRN Q4HRS PRN PO FEVER; Start 06/01/19 at 13:30; Stop 06/02/19 at 13:29 Gabapentin (Neurontin) 400 mg TID PO Last administered on 06/02/19at 09:43; Start 06/01/19 at 21:00 Ketoconazole (Nizoral 2% Topical) 1 yudy PRN BID PRN TP ITCHING; Start 06/01/19 at 19:45 Levothyroxine Sodium (Synthroid) 75 mcg DAILYAC PO Last administered on 06/02/19at 09:43; Start 06/02/19 at 07:30 Pantoprazole Sodium (Protonix) 40 mg DAILY PO Last administered on 06/02/19at 09:44; Start 06/02/19 at 09:00 Quetiapine Fumarate (SEROquel) 100 mg HS PO Last administered on 06/01/19at 20:17; Start 06/01/19 at 21:00 Sennosides (Senna) 8.6 mg HS PO Last administered on 06/01/19at 20:17; Start at 21:00 Simvastatin (Zocor) 40 mg HS PO Last administered on 06/01/19at 20:14; Start 06/01/19 at 21:00 Trazodone HCl (Desyrel) 50 mg DAILY PO ; Start 06/02/19 at 09:00; Stop 06/01/19 at 20:26; Status DC Cyclobenzaprine HCl (Flexeril) 10 mg BID PO Last administered on 06/02/19at 09:43; Start 06/01/19 at 21:00 Acetaminophen/ Hydrocodone Bitart (Lortab 5/325) 1 tab PRN Q6HRS PRN PO PAIN; Start 06/01/19 at 20:00 Trazodone HCl (Desyrel) 50 mg QHS PO Last administered on 06/01/19at 20:56; Start 06/01/19 at 21:00 Ceftriaxone Sodium (Rocephin) 1 gm Q24H IVP ; Start 06/02/19 at 10:00 Multi-Ingredient Ointment (Hydrocerin Cream) 1 yudy PRN Q1HR PRN TP DRY SKIN / SCALING; Start 06/02/19 at 10:00 Active Scripts Active Keflex (Cephalexin) 500 Mg Capsule 1 Cap PO TID Reported Gabapentin (Gabapentin) 400 Mg Capsule 400 Mg PO TID Ketoconazole 15 Gm Cream..g. 1 Yudy TP BID PRN Cyclobenzaprine Hcl 5 Mg Tablet 1 Tab PO BID Senna (Sennosides) 8.6 Mg Tablet 8.6 Mg PO HS Hydrocodone-Ibuprofen 7.5-200 (Hydrocodone/Ibuprofen) 1 Each Tablet 1 Tab PO QID PRN Levothyroxine Sodium 75 Mcg Tablet 75 Mcg PO DAILYAC Pantoprazole Sodium (Pantoprazole Sodium) 40 Mg Tablet.dr 40 Mg PO DAILY Trazodone Hcl 50 Mg Tablet 50 Mg PO HS Simvastatin 40 Mg Tablet 40 Mg PO HS Seroquel (Quetiapine Fumarate) 100 Mg Tablet 100 Mg PO HS Vitals/I & O Vital Sign - Last 24 Hours 06/01/19 06/01/19 06/01/19 06/01/19 11:33 12:03 12:33 13:03 Pulse 63 62 57 60 Resp 19 20 20 20 B/P (MAP) 119/75 (90) 118/76 (90) 122/74 (90) 126/71 (89) Pulse Ox 96 95 96 97 O2 Delivery Room Air Room Air Room Air Room Air 06/01/19 06/01/19 06/01/19 06/01/19 13:33 14:03 14:45 14:45 Temp 98.1 98.1 Pulse 64 63 72 Resp 16 18 B/P (MAP) 117/69 (85) 126/72 (90) 146/80 (102) Pulse Ox 96 97 97 O2 Delivery Room Air Room Air Room Air Room Air 06/01/19 06/01/19 06/01/19 06/02/19 19:00 20:00 22:31 03:00 Temp 98.1 98.3 98.2 98.1 98.3 98.2 Pulse 74 67 71 Resp 20 19 18 B/P (MAP) 145/87 (106) 87/45 (59) 114/73 (87) Pulse Ox 20 98 94 O2 Delivery Room Air Room Air Room Air Room Air 06/02/19 07:00 Temp 97.8 97.8 Pulse 66 Resp 16 B/P (MAP) 118/70 (86) Pulse Ox 93 O2 Delivery Room Air Intake and Output 06/01/19 06/01/19 06/02/19 15:00 23:00 07:00 Intake Total 1100 ml Output Total 300 ml Balance 1100 ml -300 ml ZULMA CHAPMAN MD Jun 02, 2019 11:04
[2019-06-02] MEDS: cefTRIAXone IV Push 1 GM VIAL. IVP SCH (11:59)
--- NOTE | 2019-06-02 14:44 | PDOC2 ---
CONSULT Date of Consult Date of Consult DATE: 06/02/19 TIME: 14:33 Reason for Consult Reason for Consult: Bilateral lower extremity cellulitis, abnormal doppler Referring Physician Referring Physician: Dr. Ahn Identification/Chief Complaint Chief Complaint Bilateral red swollen feet Right worse than left Source Source: Chart review, Patient History of Present Illness Reason for Visit: This is a 64-year-old gentleman with truncal ataxia, bipolar disorder, who came in with redness, swelling and pain to dorsum bilateral feet. He states that it has been present for 2-3 days. He notes a similar occurrence last year that resolved with antibiotics. He does not ambulate due to his truncal ataxia, he uses a wheelchair. He denies any fever, chills, or recent weight loss. He denies nausea, vomiting or diarrhea. He reports history of stroke related to [place] toxicity. Past Medical History CENTRAL NERVOUS SYSTEM: CVA, Other (truncal ataxia) Psych: Anxiety, Psychosis Infectious disease: Other (cellulitis) Renal/: Benign prostatic enlarg. Endocrine: Diabetes Family History Family History: Heart Disease, Hypertension Social History Quit ALCOHOL: none Drugs: None Current Problem List Problem List Problems Medical Problems: (1) Bilateral lower leg cellulitis Status: Acute Current Medications Current Medications Current Medications Sodium Chloride 1,000 ml @ 2,550 mls/hr Q24M IV Last administered on 06/01/19at 12:30; Start 06/01/19 at 11:11; Stop 06/01/19 at 12:11; Status DC Piperacillin Sod/ Tazobactam Sod 4.5 gm/Sodium Chloride 100 ml @ 200 mls/hr 1X ONCE IV Last administered on 06/01/19at 12:05; Start 06/01/19 at 11:45; Stop 06/01/19 at 12:14; Status DC Vancomycin HCl (Vanco Per Pharmacy) 1 each 1X ONCE MC ; Start 06/01/19 at 11:15; Stop 06/02/19 at 09:50; Status DC Morphine Sulfate (Morphine Sulfate) 4 mg PRN Q15MIN PRN IV/SQ PAIN GREATER THAN 3/10; Start 06/01/19 at 11:15; Stop 06/02/19 at 11:14; Status DC Vancomycin HCl 2 gm/Sodium Chloride 500 ml @ 250 mls/hr 1X ONCE IV Last administered on 06/01/19at 13:05; Start 06/01/19 at 12:00; Stop 06/01/19 at 13:59; Status DC Ondansetron HCl (Zofran) 4 mg PRN Q8HRS PRN IV NAUSEA/VOMITING; Start 06/01/19 at 13:30; Stop 06/02/19 at 13:29; Status DC Morphine Sulfate (Morphine Sulfate) 4 mg PRN Q2HR PRN IV PAIN; Start 06/01/19 at 13:30; Stop 06/02/19 at 13:29; Status DC Acetaminophen (Tylenol) 650 mg PRN Q4HRS PRN PO FEVER; Start 06/01/19 at 13:30; Stop 06/02/19 at 13:29; Status DC Gabapentin (Neurontin) 400 mg TID PO Last administered on 06/02/19at 09:43; Start 06/01/19 at 21:00 Ketoconazole (Nizoral 2% Topical) 1 yudy PRN BID PRN TP ITCHING; Start 06/01/19 at 19:45 Levothyroxine Sodium (Synthroid) 75 mcg DAILYAC PO Last administered on 06/02/19at 09:43; Start 06/02/19 at 07:30 Pantoprazole Sodium (Protonix) 40 mg DAILY PO Last administered on 06/02/19at 09:44; Start 06/02/19 at 09:00 Quetiapine Fumarate (SEROquel) 100 mg HS PO Last administered on 06/01/19at 20:17; Start 06/01/19 at 21:00 Sennosides (Senna) 8.6 mg HS PO Last administered on 06/01/19at 20:17; Start 06/01/19 at 21:00 Simvastatin (Zocor) 40 mg HS PO Last administered on 06/01/19at 20:14; Start 06/01/19 at 21:00 Trazodone HCl (Desyrel) 50 mg DAILY PO ; Start 06/02/19 at 09:00; Stop 06/01/19 at 20:26; Status DC Cyclobenzaprine HCl (Flexeril) 10 mg BID PO Last administered on 06/02/19at 09: 43; Start 06/01/19 at 21:00 Acetaminophen/ Hydrocodone Bitart (Lortab 5/325) 1 tab PRN Q6HRS PRN PO PAIN; Start 06/01/19 at 20:00 Trazodone HCl (Desyrel) 50 mg QHS PO Last administered on 06/01/19at 20:56; Start 06/01/19 at 21:00 Ceftriaxone Sodium (Rocephin) 1 gm Q24H IVP Last administered on 06/02/19at 11:59; Start 06/02/19 at 10:00 Multi-Ingredient Ointment (Hydrocerin Cream) 1 yudy PRN Q1HR PRN TP DRY SKIN / SCALING Last administered on 06/02/19at 11:59; Start 06/02/19 at 10:00 Active Scripts Active Keflex (Cephalexin) 500 Mg Capsule 1 Cap PO TID Reported Gabapentin (Gabapentin) 400 Mg Capsule 400 Mg PO TID Ketoconazole 15 Gm Cream..g. 1 Yudy TP BID PRN Cyclobenzaprine Hcl 5 Mg Tablet 1 Tab PO BID Senna (Sennosides) 8.6 Mg Tablet 8.6 Mg PO HS Hydrocodone-Ibuprofen 7.5-200 (Hydrocodone/Ibuprofen) 1 Each Tablet 1 Tab PO QID PRN Levothyroxine Sodium 75 Mcg Tablet 75 Mcg PO DAILYAC Pantoprazole Sodium (Pantoprazole Sodium) 40 Mg Tablet.dr 40 Mg PO DAILY Trazodone Hcl 50 Mg Tablet 50 Mg PO HS Simvastatin 40 Mg Tablet 40 Mg PO HS Seroquel (Quetiapine Fumarate) 100 Mg Tablet 100 Mg PO HS Allergies Allergies: Coded Allergies: lithium (Verified Allergy, Intermediate, 05/12/16) ROS Review of System GEN: Denies fevers, chills, sweats HEENT: Denies blurred vision, sore throat CV: Denies chest pain RESP: Denies shortness of air, cough GI: Denies n/v/d NEURO: as per HPI MSK: as per HPI Physical Exam Physical Exam Gen.: Alert and oriented 3. Cardiac: Heart rate regular, normal carotid pulses Lungs: CTA, nonlabored respirations. Abdomen: Soft, nontender, nondistended, no palpable masses. Extremities:2+ bilateral radial, femoral and DP pulses Skin: Erythema, swelling dorsum bilateral feet, R>L. Neurological: Motor dysfunction lower extremities. Vitals VITALS Vital Signs Date Time Temp Pulse Resp B/P (MAP) Pulse Ox O2 Delivery O2 Flow Rate FiO2 06/02/19 11:00 97.5 73 14 101/57 (72) 94 Room Air 97.5 Labs Labs Laboratory Tests Test 06/01/19 11:12 06/02/19 03:40 White Blood Count 6.7 x10^3/uL (4.0-11.0) 6.2 x10^3/uL (4.0-11.0) Red Blood Count 4.67 x10^6/uL (4.30-5.70) 4.04 x10^6/uL (4.30-5.70) Hemoglobin 15.3 g/dL (13.0-17.5) 13.3 g/dL (13.0-17.5) Hematocrit 44.5 % (39.0-53.0) 38.6 % (39.0-53.0) Mean Corpuscular Volume 95 fL (79-100) 96 fL (79-100) Mean Corpuscular Hemoglobin 33 pg (25-35) 33 pg (25-35) Mean Corpuscular Hemoglobin Concent 34 g/dL (31-37) 34 g/dL (31-37) Red Cell Distribution Width 13.0 % (11.5-14.5) 12.7 % (11.5-14.5) Platelet Count 201 x10^3/uL (140-400) 189 x10^3/uL (140-400) Neutrophils (%) (Auto) 56 % (31-73) 53 % (31-73) Lymphocytes (%) (Auto) 31 % (24-48) 33 % (24-48) Monocytes (%) (Auto) 9 % (0-9) 9 % (0-9) Eosinophils (%) (Auto) 3 % (0-3) 4 % (0-3) Basophils (%) (Auto) 1 % (0-3) 1 % (0-3) Neutrophils # (Auto) 3.7 x10^3/uL (1.8-7.7) 3.3 x10^3/uL (1.8-7.7) Lymphocytes # (Auto) 2.1 x10^3/uL (1.0-4.8) 2.1 x10^3/uL (1.0-4.8) Monocytes # (Auto) 0.6 x10^3/uL (0.0-1.1) 0.5 x10^3/uL (0.0-1.1) Eosinophils # (Auto) 0.2 x10^3/uL (0.0-0.7) 0.2 x10^3/uL (0.0-0.7) Basophils # (Auto) 0.1 x10^3/uL (0.0-0.2) 0.1 x10^3/uL (0.0-0.2) Erythrocyte Sedimentation Rate 10 (0-15) Sodium Level 143 mmol/L (136-145) Potassium Level 3.9 mmol/L (3.5-5.1) Chloride Level 104 mmol/L (98-107) Carbon Dioxide Level 29 mmol/L (21-32) Anion Gap 10 (6-14) Blood Urea Nitrogen 15 mg/dL (8-26) Creatinine 1.0 mg/dL (0.7-1.3) Estimated GFR (Cockcroft-Gault) 75.2 BUN/Creatinine Ratio 15 (6-20) Glucose Level 100 mg/dL (70-99) Lactic Acid Level 1.0 mmol/L (0.4-2.0) Calcium Level 9.3 mg/dL (8.5-10.1) Total Bilirubin 0.5 mg/dL (0.2-1.0) Aspartate Amino Transf (AST/SGOT) 45 U/L (15-37) Alanine Aminotransferase (ALT/SGPT) 78 U/L (16-63) Alkaline Phosphatase 72 U/L (46-116) C-Reactive Protein, Quantitative 4.5 mg/L (0-3.3) Total Protein 8.2 g/dL (6.4-8.2) Albumin 4.3 g/dL (3.4-5.0) Albumin/Globulin Ratio 1.1 (1.0-1.7) Procalcitonin < 0.10 ng/mL (0.00-0.10) Laboratory Tests Test 06/02/19 03:40 White Blood Count 6.2 x10^3/uL (4.0-11.0) Red Blood Count 4.04 x10^6/uL (4.30-5.70) Hemoglobin 13.3 g/dL (13.0-17.5) Hematocrit 38.6 % (39.0-53.0) Mean Corpuscular Volume 96 fL (79-100) Mean Corpuscular Hemoglobin 33 pg (25-35) Mean Corpuscular Hemoglobin Concent 34 g/dL (31-37) Red Cell Distribution Width 12.7 % (11.5-14.5) Platelet Count 189 x10^3/uL (140-400) Neutrophils (%) (Auto) 53 % (31-73) Lymphocytes (%) (Auto) 33 % (24-48) Monocytes (%) (Auto) 9 % (0-9) Eosinophils (%) (Auto) 4 % (0-3) Basophils (%) (Auto) 1 % (0-3) Neutrophils # (Auto) 3.3 x10^3/uL (1.8-7.7) Lymphocytes # (Auto) 2.1 x10^3/uL (1.0-4.8) Monocytes # (Auto) 0.5 x10^3/uL (0.0-1.1) Eosinophils # (Auto) 0.2 x10^3/uL (0.0-0.7) Basophils # (Auto) 0.1 x10^3/uL (0.0-0.2) Images Images Lower extremity ultrasound Findings: Right lower extremity: No evidence of velocity elevation to suggest stenosis. Monophasic waveform within the right posterior tibial, peroneal, anterior tibial and dorsalis pedis arteries. Triphasic throughout the remainder of the right lower extremity. Left lower extremity: No evidence of velocity elevation to suggest stenosis. Triphasic or biphasic waveforms throughout the left lower extremity. IMPRESSION: 1. Monophasic waveform within the right posterior tibial, peroneal, anterior tibial and dorsalis pedis arteries, may indicate proximal stenosis Assessment/Plan Assessment/Plan 64 year old male with history of truncal ataxia with bilateral lower extremity cellulitis. By physical examination the patient has palpable distal pulses and adequate arterial circulation. No surgical intervention is warranted. Recommend continued antibiotics per ID. Recommend continued wound care with topical cream. Patient seen and examined with Dr. Abad and he agrees with above. Will sign off and be available if questions. MARLI LOCKHART APRN Jun 02, 2019 14:44
[2019-06-02 15:00] VITALS: BP 123/84
--- NOTE | 2019-06-02 17:30 | PDOC ---
Provider Note Provider Note Pt seen and examined with Caitlin Ness NP. I agree with assessment and plan unless otherwise stated. 64 y/o with bilateral cellulitis of the dorsum of both feet. He has 2+ palpable DP pulses and is a nondiabetic. Infectious disease has been consulted. We will follow as necessary but appears to be inflammatory with no evidence of abscess. RAINA JEAN II, MD Jun 02, 2019 17:30
[2019-06-02 19:00] VITALS: BP 107/82
[2019-06-02] MEDS: traZODone 50 MG TABLET. PO SCH (20:27)
[2019-06-02] MEDS: QUEtiapine 100 MG TABLET. PO SCH (20:27)
[2019-06-02] MEDS: SENNOSIDES 8.6 MG TABLET PO SCH (20:27)
[2019-06-02] MEDS: SIMVASTATIN 40 MG TABLET. PO SCH (20:27)
[2019-06-02 23:00] VITALS: BP 112/63
[2019-06-03] MEDS: KETOCONAZOLE 2% TOPICAL CREAM 15GM TUBE. TP PRN ×2 (00:07→10:28)
[2019-06-03 03:00] VITALS: BP 90/58
[2019-06-03 07:00] VITALS: BP 108/72
--- NOTE | 2019-06-03 09:30 | PDOC ---
PROGRESS NOTES History of Present Illness History of Present Illness VTE Prophylaxis Ordered VTE Prophylaxis Devices: Yes VTE Pharmacological Prophylaxi: Yes DISCHARGE DX Assessment/Plan IMPRESSION: Monophasic waveform within the right posterior tibial, peroneal, anterior tibial and dorsalis pedis arteries, may indicate proximal stenosis by doppler 06/01 Cellulitis both FEET , ACUTE RIGHT > LEFT HX SCHIZOPHRENIA Hx of [place] toxicity with persistent discoordination, disequilibrium: recent MRI shows cerebellar atrophy Bipolar disease with depression and anxiety: cont home meds Anemia - likely of chronic disease BPH - cont meds Cerebellar ataxia - known history, plan admit PT/OT id consult vascular surgery consult iv antibiotics, emperic DVT PROPHYLAXIS cont home meds leg elevation po cefdinir and steroid cream D/W RN D/C 06/03 D/C PLANNING 32 MIN Vitals Vitals Vital Signs Date Time Temp Pulse Resp B/P (MAP) Pulse Ox O2 Delivery O2 Flow Rate FiO2 06/03/19 07:00 98.0 70 16 108/72 (84) 94 Room Air 98.0 Physical Exam General: Alert, Oriented X3, Cooperative, No acute distress Heart: Regular rate Lungs: Clear, Other Abdomen: Normal bowel sounds, Soft Extremities: No cyanosis Assessment and Plan Assessmemt and Plan Problems Medical Problems: (1) Bilateral lower leg cellulitis Status: Acute Comment Review of Relevant I have reviewed the following items cornelio (where applicable) has been applied. Labs Laboratory Tests Test 06/01/19 11:12 06/02/19 03:40 White Blood Count 6.7 x10^3/uL (4.0-11.0) 6.2 x10^3/uL (4.0-11.0) Red Blood Count 4.67 x10^6/uL (4.30-5.70) 4.04 x10^6/uL (4.30-5.70) Hemoglobin 15.3 g/dL (13.0-17.5) 13.3 g/dL (13.0-17.5) Hematocrit 44.5 % (39.0-53.0) 38.6 % (39.0-53.0) Mean Corpuscular Volume 95 fL (79-100) 96 fL (79-100) Mean Corpuscular Hemoglobin 33 pg (25-35) 33 pg (25-35) Mean Corpuscular Hemoglobin Concent 34 g/dL (31-37) 34 g/dL (31-37) Red Cell Distribution Width 13.0 % (11.5-14.5) 12.7 % (11.5-14.5) Platelet Count 201 x10^3/uL (140-400) 189 x10^3/uL (140-400) Neutrophils (%) (Auto) 56 % (31-73) 53 % (31-73) Lymphocytes (%) (Auto) 31 % (24-48) 33 % (24-48) Monocytes (%) (Auto) 9 % (0-9) 9 % (0-9) Eosinophils (%) (Auto) 3 % (0-3) 4 % (0-3) Basophils (%) (Auto) 1 % (0-3) 1 % (0-3) Neutrophils # (Auto) 3.7 x10^3/uL (1.8-7.7) 3.3 x10^3/uL (1.8-7.7) Lymphocytes # (Auto) 2.1 x10^3/uL (1.0-4.8) 2.1 x10^3/uL (1.0-4.8) Monocytes # (Auto) 0.6 x10^3/uL (0.0-1.1) 0.5 x10^3/uL (0.0-1.1) Eosinophils # (Auto) 0.2 x10^3/uL (0.0-0.7) 0.2 x10^3/uL (0.0-0.7) Basophils # (Auto) 0.1 x10^3/uL (0.0-0.2) 0.1 x10^3/uL (0.0-0.2) Erythrocyte Sedimentation Rate 10 (0-15) Sodium Level 143 mmol/L (136-145) Potassium Level 3.9 mmol/L (3.5-5.1) Chloride Level 104 mmol/L (98-107) Carbon Dioxide Level 29 mmol/L (21-32) Anion Gap 10 (6-14) Blood Urea Nitrogen 15 mg/dL (8-26) Creatinine 1.0 mg/dL (0.7-1.3) Estimated GFR (Cockcroft-Gault) 75.2 BUN/Creatinine Ratio 15 (6-20) Glucose Level 100 mg/dL (70-99) Lactic Acid Level 1.0 mmol/L (0.4-2.0) Calcium Level 9.3 mg/dL (8.5-10.1) Total Bilirubin 0.5 mg/dL (0.2-1.0) Aspartate Amino Transf (AST/SGOT) 45 U/L (15-37) Alanine Aminotransferase (ALT/SGPT) 78 U/L (16-63) Alkaline Phosphatase 72 U/L (46-116) C-Reactive Protein, Quantitative 4.5 mg/L (0-3.3) Total Protein 8.2 g/dL (6.4-8.2) Albumin 4.3 g/dL (3.4-5.0) Albumin/Globulin Ratio 1.1 (1.0-1.7) Procalcitonin < 0.10 ng/mL (0.00-0.10) Microbiology 06/01/19 Blood Culture - Preliminary, Resulted NO GROWTH AFTER 1 DAY Medications Current Medications Sodium Chloride 1,000 ml @ 2,550 mls/hr Q24M IV Last administered on 06/01/19at 12:30; Start 06/01/19 at 11:11; Stop 06/01/19 at 12:11; Status DC Piperacillin Sod/ Tazobactam Sod 4.5 gm/Sodium Chloride 100 ml @ 200 mls/hr 1X ONCE IV Last administered on 06/01/19at 12:05; Start 06/01/19 at 11:45; Stop 06/01/19 at 12:14; Status DC Vancomycin HCl (Vanco Per Pharmacy) 1 each 1X ONCE MC ; Start 06/01/19 at 11:15; Stop 06/02/19 at 09:50; Status DC Morphine Sulfate (Morphine Sulfate) 4 mg PRN Q15MIN PRN IV/SQ PAIN GREATER THAN 3/10; Start 06/01/19 at 11:15; Stop 06/02/19 at 11:14; Status DC Vancomycin HCl 2 gm/Sodium Chloride 500 ml @ 250 mls/hr 1X ONCE IV Last administered on 06/01/19at 13:05; Start 06/01/19 at 12:00; Stop 06/01/19 at 13:59; Status DC Ondansetron HCl (Zofran) 4 mg PRN Q8HRS PRN IV NAUSEA/VOMITING; Start 06/01/19 at 13:30; Stop 06/02/19 at 13:29; Status DC Morphine Sulfate (Morphine Sulfate) 4 mg PRN Q2HR PRN IV PAIN; Start 06/01/19 at 13:30; Stop 06/02/19 at 13:29; Status DC Acetaminophen (Tylenol) 650 mg PRN Q4HRS PRN PO FEVER; Start 06/01/19 at 13:30; Stop 06/02/19 at 13:29; Status DC Gabapentin (Neurontin) 400 mg TID PO Last administered on 06/02/19at 20:27; Start 06/01/19 at 21:00 Ketoconazole (Nizoral 2% Topical) 1 yudy PRN BID PRN TP ITCHING Last administered on 06/03/19at 00:07; Start 06/01/19 at 19:45 Levothyroxine Sodium (Synthroid) 75 mcg DAILYAC PO Last administered on 06/02/19at 09:43; Start 06/02/19 at 07:30 Pantoprazole Sodium (Protonix) 40 mg DAILY PO Last administered on 06/02/19at 09:44; Start 06/02/19 at 09:00 Quetiapine Fumarate (SEROquel) 100 mg HS PO Last administered on 06/02/19at 20:27; Start 06/01/19 at 21:00 Sennosides (Senna) 8.6 mg HS PO Last administered on 06/02/19at 20:27; Start 06/01/19 at 21:00 Simvastatin (Zocor) 40 mg HS PO Last administered on 06/02/19at 20:27; Start 06/01/19 at 21:00 Trazodone HCl (Desyrel) 50 mg DAILY PO ; Start 06/02/19 at 09:00; Stop 06/01/19 at 20:26; Status DC Cyclobenzaprine HCl (Flexeril) 10 mg BID PO Last administered on 06/02/19at 20:27; Start 06/01/19 at 21:00 Acetaminophen/ Hydrocodone Bitart (Lortab 5/325) 1 tab PRN Q6HRS PRN PO PAIN; Start 06/01/19 at 20:00 Trazodone HCl (Desyrel) 50 mg QHS PO Last administered on 06/02/19at 20:27; Start 06/01/19 at 21:00 Ceftriaxone Sodium (Rocephin) 1 gm Q24H IVP Last administered on 06/02/19at 11:59; Start 06/02/19 at 10:00 Multi-Ingredient Ointment (Hydrocerin Cream) 1 yudy PRN Q1HR PRN TP DRY SKIN / SCALING Last administered on 06/02/19at 11:59; Start 06/02/19 at 10:00 Active Scripts Active Keflex (Cephalexin) 500 Mg Capsule 1 Cap PO TID Reported Gabapentin (Gabapentin) 400 Mg Capsule 400 Mg PO TID Ketoconazole 15 Gm Cream..g. 1 Yudy TP BID PRN Cyclobenzaprine Hcl 5 Mg Tablet 1 Tab PO BID Senna (Sennosides) 8.6 Mg Tablet 8.6 Mg PO HS Hydrocodone-Ibuprofen 7.5-200 (Hydrocodone/Ibuprofen) 1 Each Tablet 1 Tab PO QID PRN Levothyroxine Sodium 75 Mcg Tablet 75 Mcg PO DAILYAC Pantoprazole Sodium (Pantoprazole Sodium) 40 Mg Tablet.dr 40 Mg PO DAILY Trazodone Hcl 50 Mg Tablet 50 Mg PO HS Simvastatin 40 Mg Tablet 40 Mg PO HS Seroquel (Quetiapine Fumarate) 100 Mg Tablet 100 Mg PO HS Vitals/I & O Vital Sign - Last 24 Hours 06/02/19 06/02/19 06/02/19 06/02/19 11:00 15:00 19:00 20:00 Temp 97.5 98.8 98.8 97.5 98.8 98.8 Pulse 73 74 73 Resp 14 16 18 B/P (MAP) 101/57 (72) 123/84 (97) 107/82 (90) Pulse Ox 94 95 96 O2 Delivery Room Air Room Air Room Air 06/02/19 06/03/19 06/03/19 23:00 03:00 07:00 Temp 98.5 97.1 98.0 98.5 97.1 98.0 Pulse 71 72 70 Resp 16 16 16 B/P (MAP) 112/63 (79) 90/58 (69) 108/72 (84) Pulse Ox 95 94 94 O2 Delivery Room Air Intake and Output 06/02/19 06/02/19 06/03/19 15:00 23:00 07:00 Output Total 400 ml 1250 ml 350 ml Balance -400 ml -1250 ml -350 ml ZULMA CHAPMAN MD Jun 03, 2019 09:30
--- NOTE | 2019-06-03 10:15 | PDOC ---
Infectious Disease Note Subjective Subjective feeling better ROS ROS no n/v/d/sob/fever Vital Sign Vital Signs Vital Signs Date Time Temp Pulse Resp B/P (MAP) Pulse Ox O2 Delivery O2 Flow Rate FiO2 06/03/19 07:00 98.0 70 16 108/72 (84) 94 Room Air 98.0 Physical Exam PHYSICAL EXAM PHYSICAL EXAMINATION: GENERAL: Alert and oriented gentleman, not in distress. VITAL SIGNS: Stable, afebrile. HEENT: NAD. NECK: Supple, no JVP, no lymphadenopathy. LUNGS: Clear. HEART: S1, S2 regular. ABDOMEN: Soft, nontender. No organomegaly. EXTREMITIES: Bilateral lower extremity has a dry flaky skin onto the dorsum of the feet with a coarse texture. It is red, swollen, minimal warmth to it. There is no other skin breakdown. No tinea infection between the toes. NEUROLOGIC: The patient is able to move all the extremities. No focal deficit. Labs Micro Microbiology 06/01/19 Blood Culture - Preliminary, Resulted NO GROWTH AFTER 1 DAY Objective Assessment IMPRESSION: 1. Bilateral feet at the dorsum redness. This is not classic cellulitis. It could be contact dermatitis. It could be secondary to the scratching. 2. Truncal ataxia. 3. Bipolar disorder. 4. Cerebrovascular accident. 5. Gastroesophageal reflux disease. Plan Plan of Care ok to d/c home leg elevation po cefdinir and steroid cream SHIRLEY RAVI MD Jun 03, 2019 10:15
--- NOTE | 2019-06-03 10:18 | NUR ---
SW following. Discussed with RN, vascular has signed off, anticipate possible discharge home if abx switched to PO. SW will continue to follow.
[2019-06-03] MEDS: GABAPENTIN 400 MG CAPSULE. PO SCH ×2 (10:27→14:26)
[2019-06-03] MEDS: PANTOPRAZOLE 40 MG TABLET.DR. PO SCH (10:27)
[2019-06-03] MEDS: LEVOTHYROXINE 75 MCG TABLET PO SCH (10:27)
[2019-06-03] MEDS: CYCLOBENZAPRINE 10 MG TABLET. PO SCH (10:27)
[2019-06-03] MEDS: cefTRIAXone IV Push 1 GM VIAL. IVP SCH (10:28)
[2019-06-03 11:00] VITALS: BP 115/67
[2019-06-03 15:00] VITALS: BP 120/77
--- NOTE | 2019-06-03 16:42 | PDOC3 ---
Discharge Summary Date of Admission: Jun 01, 2019 Date of Discharge: Jun 03, 2019 Follow-Up: 3-5 days Admitting Diagnosis comment: DISCHARGE DX Assessment/Plan IMPRESSION: Monophasic waveform within the right posterior tibial, peroneal, anterior tibial and dorsalis pedis arteries, may indicate proximal stenosis by doppler 06/01 Cellulitis both FEET , ACUTE RIGHT > LEFT HX SCHIZOPHRENIA Hx of [place] toxicity with persistent discoordination, disequilibrium: recent MRI shows cerebellar atrophy Bipolar disease with depression and anxiety: cont home meds Anemia - likely of chronic disease BPH - cont meds Cerebellar ataxia - known history, plan admit PT/OT id consult vascular surgery consult iv antibiotics, emperic DVT PROPHYLAXIS cont home meds leg elevation po cefdinir and steroid cream D/W RN D/C 06/03 D/C PLANNING 32 MIN Vitals Vitals Vital Signs Date Time Temp Pulse Resp B/P (MAP) Pulse Ox O2 Delivery O2 Flow Rate FiO2 06/03/19 07:00 98.0 70 16 108/72 (84) 94 Room Air 98.0 Physical Exam General: Alert, Oriented X3, Cooperative, No acute distress Heart: Regular rate Lungs: Clear, Other Abdomen: Normal bowel sounds, Soft Extremities: No cyanosis FINAL DIAGNOSIS Problems Medical Problems: (1) Bilateral lower leg cellulitis Status: Acute Brief Hospital Course Mr. Kimble is a 64 old [sex] who presented with [ FOOT CELLULITIS] CONDITION AT DISCHARGE: Improved Discharge Medications Current Medications Sodium Chloride 1,000 ml @ 2,550 mls/hr Q24M IV Last administered on 06/01/19at 12:30; Start 06/01/19 at 11:11; Stop 06/01/19 at 12:11; Status DC Piperacillin Sod/ Tazobactam Sod 4.5 gm/Sodium Chloride 100 ml @ 200 mls/hr 1X ONCE IV Last administered on 06/01/19at 12:05; Start 06/01/19 at 11:45; Stop 06/01/19 at 12:14; Status DC Vancomycin HCl (Vanco Per Pharmacy) 1 each 1X ONCE MC ; Start 06/01/19 at 11:15; Stop 06/02/19 at 09:50; Status DC Morphine Sulfate (Morphine Sulfate) 4 mg PRN Q15MIN PRN IV/SQ PAIN GREATER THAN 3/10; Start 06/01/19 at 11:15; Stop 06/02/19 at 11:14; Status DC Vancomycin HCl 2 gm/Sodium Chloride 500 ml @ 250 mls/hr 1X ONCE IV Last administered on 06/01/19at 13:05; Start 06/01/19 at 12:00; Stop 06/01/19 at 13:59; Status DC Ondansetron HCl (Zofran) 4 mg PRN Q8HRS PRN IV NAUSEA/VOMITING; Start 06/01/19 at 13:30; Stop 06/02/19 at 13:29; Status DC Morphine Sulfate (Morphine Sulfate) 4 mg PRN Q2HR PRN IV PAIN; Start 06/01/19 at 13:30; Stop 06/02/19 at 13:29; Status DC Acetaminophen (Tylenol) 650 mg PRN Q4HRS PRN PO FEVER; Start 06/01/19 at 13:30; Stop 06/02/19 at 13:29; Status DC Gabapentin (Neurontin) 400 mg TID PO Last administered on 06/03/19at 14:26; Start 06/01/19 at 21:00 Ketoconazole (Nizoral 2% Topical) 1 yudy PRN BID PRN TP ITCHING Last administered on 06/03/19at 10:28; Start 06/01/19 at 19:45 Levothyroxine Sodium (Synthroid) 75 mcg DAILYAC PO Last administered on 06/03/19at 10:27; Start 06/02/19 at 07:30 Pantoprazole Sodium (Protonix) 40 mg DAILY PO Last administered on 06/03/19at 10:27; Start 06/02/19 at 09:00 Quetiapine Fumarate (SEROquel) 100 mg HS PO Last administered on 06/02/19at 20:27; Start 06/01/19 at 21:00 Sennosides (Senna) 8.6 mg HS PO Last administered on 06/02/19at 20:27; Start 06/01/19 at 21:00 Simvastatin (Zocor) 40 mg HS PO Last administered on 06/02/19at 20:27; Start 06/01/19 at 21:00 Trazodone HCl (Desyrel) 50 mg DAILY PO ; Start 06/02/19 at 09:00; Stop 06/01/19 at 20:26; Status DC Cyclobenzaprine HCl (Flexeril) 10 mg BID PO Last administered on 06/03/19at 10:27; Start 06/01/19 at 21:00 Acetaminophen/ Hydrocodone Bitart (Lortab 5/325) 1 tab PRN Q6HRS PRN PO PAIN; Start 06/01/19 at 20:00 Trazodone HCl (Desyrel) 50 mg QHS PO Last administered on 06/02/19at 20:27; Start 06/01/19 at 21:00 Ceftriaxone Sodium (Rocephin) 1 gm Q24H IVP Last administered on 06/03/19at 10:28; Start 06/02/19 at 10:00 Multi-Ingredient Ointment (Hydrocerin Cream) 1 yudy PRN Q1HR PRN TP DRY SKIN / SCALING Last administered on 06/02/19at 11:59; Start 06/02/19 at 10:00 Active Scripts Active Keflex (Cephalexin) 500 Mg Capsule 1 Cap PO TID Reported Gabapentin (Gabapentin) 400 Mg Capsule 400 Mg PO TID Ketoconazole 15 Gm Cream..g. 1 Yudy TP BID PRN Cyclobenzaprine Hcl 5 Mg Tablet 1 Tab PO BID Senna (Sennosides) 8.6 Mg Tablet 8.6 Mg PO HS Hydrocodone-Ibuprofen 7.5-200 (Hydrocodone/Ibuprofen) 1 Each Tablet 1 Tab PO QID PRN Levothyroxine Sodium 75 Mcg Tablet 75 Mcg PO DAILYAC Pantoprazole Sodium (Pantoprazole Sodium) 40 Mg Tablet.dr 40 Mg PO DAILY Trazodone Hcl 50 Mg Tablet 50 Mg PO HS Simvastatin 40 Mg Tablet 40 Mg PO HS Seroquel (Quetiapine Fumarate) 100 Mg Tablet 100 Mg PO HS Vital Signs Vital Signs Date Time Temp Pulse Resp B/P (MAP) Pulse Ox O2 Delivery O2 Flow Rate FiO2 06/03/19 11:00 98.7 80 16 115/67 (83) 93 Room Air 98.7 Labs Laboratory Tests Test 06/02/19 03:40 White Blood Count 6.2 x10^3/uL (4.0-11.0) Red Blood Count 4.04 x10^6/uL (4.30-5.70) Hemoglobin 13.3 g/dL (13.0-17.5) Hematocrit 38.6 % (39.0-53.0) Mean Corpuscular Volume 96 fL (79-100) Mean Corpuscular Hemoglobin 33 pg (25-35) Mean Corpuscular Hemoglobin Concent 34 g/dL (31-37) Red Cell Distribution Width 12.7 % (11.5-14.5) Platelet Count 189 x10^3/uL (140-400) Neutrophils (%) (Auto) 53 % (31-73) Lymphocytes (%) (Auto) 33 % (24-48) Monocytes (%) (Auto) 9 % (0-9) Eosinophils (%) (Auto) 4 % (0-3) Basophils (%) (Auto) 1 % (0-3) Neutrophils # (Auto) 3.3 x10^3/uL (1.8-7.7) Lymphocytes # (Auto) 2.1 x10^3/uL (1.0-4.8) Monocytes # (Auto) 0.5 x10^3/uL (0.0-1.1) Eosinophils # (Auto) 0.2 x10^3/uL (0.0-0.7) Basophils # (Auto) 0.1 x10^3/uL (0.0-0.2) Allergies Allergies Coded Allergies Type Severity Reaction Last Updated Verified lithium Allergy Intermediate 05/12/16 Yes Disposition/Orders: D/C to Home ZULMA CHAPMAN MD Jun 03, 2019 16:42
[2019-06-03] MEDS ORDERED: MINE454C9 TP (16:44)
[2019-06-03] MEDS ORDERED: CEFD300C PO (16:44)
--- NOTE | 2019-06-03 19:04 | NUR ---
Discharge Note: PT DISCHARGED HOME WITH SELF CARE. PT LEFT FACILITY VIA [facility] AT 1835. PT STABLE AND ALERT UPON DISCHARGE. PT PIV REMOVED FROM R AC AND L AC WITHOUT COMPLICATIONS, BANDAGE APPLIED. PT EDUCATED ABOUT DISCHARGE INSTRUCTIONS, DISCHARGE MEDICATIONS, AND FOLLOW-UP CARE. PT VOICED NO CONCERNS AT THIS TIME. PT LEFT WITH ALL PERSONAL BELONGINGS IN MOTORIZED WHEELCHAIR. WILLIAM STONER Discharge instructions and discharge home medications reviewed with Patient and a copy given. All questions have been answered and understanding verbalized.
== END 2019-06-03 18:35 | disposition home or self-care (01) | DRG 603 ==
LOC: ER 09:36 → 5 SOUTH 12:54
PROVIDERS: ADMIT Family Medicine; ATTEND Family Medicine
DX: L03.115 Cellulitis of right lower limb (principal); G11.9 Hereditary ataxia, unspecified; L03.116 Cellulitis of left lower limb; I70.209 Unspecified atherosclerosis of native arteries of extremities, unspecified extremity; K21.9 Gastro-esophageal reflux disease without esophagitis; D63.8 Anemia in other chronic diseases classified elsewhere; E03.9 Hypothyroidism, unspecified; E11.9 Type 2 diabetes mellitus without complications; E78.00 Pure hypercholesterolemia, unspecified; E78.5 Hyperlipidemia, unspecified; F20.9 Schizophrenia, unspecified; F31.9 Bipolar disorder, unspecified; F41.9 Anxiety disorder, unspecified; I10 Essential (primary) hypertension; N40.0 Benign prostatic hyperplasia without lower urinary tract symptoms; Z82.49 Family history of ischemic heart disease and other diseases of the circulatory system; Z86.73 Personal history of transient ischemic attack (TIA), and cerebral infarction without residual deficits; Z90.49 Acquired absence of other specified parts of digestive tract; Z88.8 Allergy status to other drugs, medicaments and biological substances
CPT/HCPCS: 36415; 80053; 83605; 84145; 85025; 85651; 86140; 87040; 93925; 93970; J0696; J2543; J3370; J7030; J7040; G0378

== ENCOUNTER → 2021-04-24 | Day surgery (SDC) | payer OTHER ==
[~2021-04-24] VITALS: Ht 188 cm; Wt 106.8 kg
[~2021-04-24] MED LIST changes: +CEFD300C PO; +CEPH250C PO; +IV RINGERS,LACTATED 1000ML 1,000 ML IV ONE; +MINE454C9 TP; +PROPOFOL 10 MG/ML (20ML) VIAL. IV ONE; -QUET200T PO; +QUET200T2 PO; +SENN-182 PO; -SENN-80 PO
[2021-04-24 07:38] VITALS: BP 148/82
[2021-04-24 08:58] VITALS: BP 144/63
--- NOTE | 2021-04-25 06:25 | CONS ---
DATE OF CONSULTATION: 04/24/2021 REASON FOR CONSULTATION: History of colon polyps. HISTORY OF PRESENT ILLNESS: This is a 66-year-old male whose past medical history is significant for truncal ataxia, hepatitis C, hypothyroidism, is seen for interval colon exam. Last exam did reveal colon polyps ____. There has been no change in bowel habit, diarrhea or constipation. There has been no melena and/or hematochezia. Weight and appetite are stable. Family history is unrevealing as well. Otherwise without additional complaints. PAST MEDICAL HISTORY: Bipolar disorder, truncal cerebellar ataxia, hepatitis C, diabetes. ALLERGIES: LITHIUM. MEDICATIONS: Gabapentin, hydrocodone, ketaconazole, levothyroxine, pantoprazole, Seroquel, senna, simvastatin, and trazodone. FAMILY AND SOCIAL HISTORY: Former polysubstance user. PAST SURGICAL HISTORY: Appendectomy. REVIEW OF SYSTEMS: Per records. PHYSICAL EXAMINATION: GENERAL: A well-nourished, well-developed male who is alert, cooperative with muscle wasting. VITAL SIGNS: Temperature is 97.6, pulse 80, respirations 20. LUNGS: Clear. CARDIOVASCULAR: Reveals an S1, S2, without S3, S4 or appreciable murmur. ABDOMEN: Reveals a soft abdomen. Normoactive bowel sounds without appreciable hepatosplenomegaly. EXTREMITIES: Reveal no cyanosis, clubbing or edema. IMPRESSION AND PLAN: History of colon polyps. Surveillance exam is recommended at this time. Risks and benefits of procedure have been discussed. The patient is willing to proceed. JA DR: Jose TID: [id number] CC: ____
--- NOTE | 2021-04-25 13:21 | PATHOLOGY ---
[facility] Accession Number: [id number] . 01 Material submitted: . PART A: rectum - RECTUM POLYP PART B: sigmoid colon - SIGMOID POLYP PART C: colon - DESCENDING COLON POLYP. Modifiers: descending . 01 Clinical history: . HX OF POLYPS COLON . 02 Diagnosis: A. Colorectal biopsy, rectal polyp: - Hyperplastic polyp. . B. Colon biopsies, sigmoid polyp: - Tubular adenoma. . C. Colon biopsies, descending colon polyp: - Hyperplastic polyp with focal coagulation artifact. - Vegetable material. . (JPM:fang; 04/25/2021) [facility] 04/25/2021 1113 Local . 02 Comment: There is no high-grade dysplasia or evidence of malignancy. (JPM:fang; 04/25/2021) . 02 Electronically signed: . Olvin Khan MD, Pathologist NPI- [id number] . 01 Gross description: . A. The specimen is received in formalin, labeled "Shyanne, Liam, rectum polyp". Received is a single segment of pale angel tissue measuring 0.3 cm in maximum dimension. The specimen is entirely submitted in cassette A1. . B. The specimen is received in formalin, labeled "Shyanne, Liam, sigmoid polyp". Received are 4 segments of pale angel tissue ranging in size from 0.3-0.5 cm in maximum dimensions. The specimen is entirely submitted in cassette B1. . C. The specimen is received in formalin, labeled "Shyanne, Liam, descending colon polyp". Received are multiple, possible fragments of pale angel tissue admixed with a mild amount of vegetable material measuring 1.5 x 0.7 x 0.1 cm in aggregate dimensions. The specimen is filtered and entirely submitted in cassette C1. ([facility]; 04/24/2021) NRI/NRI 04/24/2021 2137 Local . 02 Pathologist provided ICD-10: K62.1, D12.5, K63.5 . 02 CPT . 956243, 408585, 817850 Specimen Comment: A courtesy copy of this report has been sent to [phone], [phone] Specimen Comment: [id number] Specimen Comment: Report sent to / DR BURGOS Performed at: 01 [facility] [address], [place] [id number] MD Nicholas Abel MD Phone: [phone] Performed at: 02 [facility] [address] [place], [place] [id number] MD Olvin Khan MD Phone: [phone]
== END | disposition home or self-care (01) ==
LOC: ENDOS 07:10
PROVIDERS: ATTEND Internal Medicine Gastroenterology
DX: Z12.11 Encounter for screening for malignant neoplasm of colon (principal); D12.5 Benign neoplasm of sigmoid colon; K63.89 Other specified diseases of intestine; K64.0 First degree hemorrhoids; E03.9 Hypothyroidism, unspecified; E11.9 Type 2 diabetes mellitus without complications; E78.00 Pure hypercholesterolemia, unspecified; K21.9 Gastro-esophageal reflux disease without esophagitis; M19.90 Unspecified osteoarthritis, unspecified site; N40.0 Benign prostatic hyperplasia without lower urinary tract symptoms; F41.9 Anxiety disorder, unspecified; F32.9 Major depressive disorder, single episode, unspecified; Z87.440 Personal history of urinary (tract) infections; Z86.010 Personal history of colon polyps; Z87.891 Personal history of nicotine dependence; Z79.899 Other long term (current) drug therapy; Z98.890 Other specified postprocedural states; Z88.8 Allergy status to other drugs, medicaments and biological substances; Z80.0 Family history of malignant neoplasm of digestive organs
CPT/HCPCS: 45380; 45385; 88305; J2704

== ENCOUNTER 2021-04-30 11:12 | Observation (INO) | payer OTHER ==
[~2021-04-30] VITALS: Ht 193 cm; Wt 106.7 kg
[~2021-04-30 11:12] MED LIST changes: -CEPH250C PO; -IV RINGERS,LACTATED 1000ML 1,000 ML IV ONE; -PROPOFOL 10 MG/ML (20ML) VIAL. IV ONE
--- NOTE | 2021-04-30 17:41 | PHYS DOC ---
Past Medical History Past Medical History: Bipolar, CVA, GERD, High Cholesterol, Hypothyroid, Hepatitis, Prostatitis Additional Past Medical Histor: TRUNCAL ATAXIA, ENCEPHALOPATHY,URINARY OBS,INSOMNIA, NEUROPATHY, LITHIUMTOX (BAILEY PATINO APRN) Past Surgical History: Appendectomy Additional Past Surgical Histo: unknown (BAILEY PATINO APRN) Smoking Status: Former Smoker Alcohol Use: Rarely Drug Use: None (BAILEY PATINO APRN) General Adult EDM: Chief Complaint: OTHER COMPLAINTS HPI: HPI: Patient is a 66-year-old male that presents today with right foot cellulitis. Patient states a couple days ago he started noticing some redness in his right foot and is progressively gotten worse. He states since he has a history of cellulitis he decided to come in and be evaluated. 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 He says that is not new. He says he does own a couple of cats and he is not sure if maybe one of the cats has scratched him on his foot as well. (BAILEY PATINO APRN) Review of Systems: Review of Systems: Constitutional: Denies fever or chills. [] Eyes: Denies change in visual acuity. [] HENT: Denies nasal congestion or sore throat. [] Respiratory: Denies cough or shortness of breath. [] Cardiovascular: Denies chest pain or edema. [] GI: Denies abdominal pain, nausea, vomiting, bloody stools or diarrhea. [] : Denies dysuria. [] Musculoskeletal: Redness and swelling right foot Integument: Denies rash. [] Neurologic: Denies headache, focal weakness or sensory changes. [] Endocrine: Denies polyuria or polydipsia. [] Lymphatic: Denies swollen glands. [] Psychiatric: Denies depression or anxiety. [] (BAILEY PATINO APRN) Heart Score: C/O Chest Pain: N/A Risk Factors: Risk Factors: DM, Current or recent (<one month) smoker, HTN, HLP, family history of CAD, obesity. Risk Scores: Score 0 - 3: 2.5% MACE over next 6 weeks - Discharge Home Score 4 - 6: 20.3% MACE over next 6 weeks - Admit for Clinical Observation Score 7 - 10: 72.7% MACE over next 6 weeks - Early Invasive Strategies (BAILEY PATINO APRN) Current Medications: Senna 8.6 mg at bedtime Hydrocodone 7.5 mg as needed for pain Simvastatin 40 mg at bedtime Levothyroxine 0.075 mg daily Gabapentin 400 mg 3 times a day Pantotoprazole 40mg daily Trazodone 50 mg daily Quetiapine 100mg take one at bedtime (BAILEY PATINO APRN) Allergies: Allergies: Allergies Coded Allergies Type Severity Reaction Last Updated Verified lithium Allergy Intermediate 04/24/21 Yes (BAILEY PATINO APRN) Physical Exam: PE: Constitutional: Well developed, well nourished, no acute distress, non-toxic appearance. [] HENT: Normocephalic, atraumatic, bilateral external ears normal, oropharynx moist, no oral exudates, nose normal. [] Eyes: PERRLA, EOMI, conjunctiva normal, no discharge. [] Neck: Normal range of motion, no tenderness, supple, no stridor. [] Cardiovascular:Heart rate regular rhythm, no murmur [] Lungs & Thorax: Bilateral breath sounds clear to auscultation [] Abdomen: Bowel sounds normal, soft, no tenderness, no masses, no pulsatile masses. [] Skin: Warm, dry, no erythema, no rash. [] Back: No tenderness, no CVA tenderness. [] Extremities: Right leg has trace edema, redness noted onto the anterior portion of the foot spreading into the lateral side of the ankle redness is warm to touch it is somewhat swollen, pedal pulses are 1+ cap refill less than 2 seconds distal to the swelling, sensory intact distal. Neurologic: Alert and oriented X 3, patient normally uses a wheelchair to get around, he says he is able to stand with grab bar assistance but cannot walk due to dizziness [] Psychologic: Affect normal, judgement normal, mood normal. [] (BAILEY PATINO APRN) Current Patient Data: Labs: Laboratory Tests Test 04/30/21 17:25 White Blood Count 6.6 x10^3/uL Red Blood Count 4.44 x10^6/uL Hemoglobin 14.8 g/dL Hematocrit 42.7 % Mean Corpuscular Volume 96 fL Mean Corpuscular Hemoglobin 33 pg Mean Corpuscular Hemoglobin Concent 35 g/dL Red Cell Distribution Width 13.1 % Platelet Count 204 x10^3/uL Neutrophils (%) (Auto) 57 % Lymphocytes (%) (Auto) 31 % Monocytes (%) (Auto) 7 % Eosinophils (%) (Auto) 2 % Basophils (%) (Auto) 2 % Neutrophils # (Auto) 3.8 x10^3/uL Lymphocytes # (Auto) 2.0 x10^3/uL Monocytes # (Auto) 0.5 x10^3/uL Eosinophils # (Auto) 0.1 x10^3/uL Basophils # (Auto) 0.1 x10^3/uL Sodium Level 142 mmol/L Potassium Level 4.0 mmol/L Chloride Level 102 mmol/L Carbon Dioxide Level 27 mmol/L Anion Gap 13 Blood Urea Nitrogen 11 mg/dL Creatinine 1.0 mg/dL Estimated GFR (Cockcroft-Gault) 74.8 BUN/Creatinine Ratio 11 Glucose Level 108 mg/dL Lactic Acid Level 1.8 mmol/L Calcium Level 9.0 mg/dL Total Bilirubin 0.7 mg/dL Aspartate Amino Transf (AST/SGOT) 62 U/L Alanine Aminotransferase (ALT/SGPT) 97 U/L Alkaline Phosphatase 79 U/L C-Reactive Protein, Quantitative 6.1 mg/L Total Protein 8.2 g/dL Albumin 4.2 g/dL Albumin/Globulin Ratio 1.1 Current Medications Medications (Trade) Dose Ordered Sig/Kleber Route PRN Reason Start Time Stop Time Status Last Admin Dose Admin Piperacillin Sod/ Tazobactam Sod 4.5 gm/Dextrose 100 ml @ 200 mls/hr 1X ONCE IV 04/30/21 20:00 04/30/21 20:29 Morphine Sulfate (Morphine Sulfate) 2 mg PRN Q2HR PRN IVP PAIN 04/30/21 19:45 05/01/21 19:44 Vital Signs: Vital Signs Date Time Temp Pulse Resp B/P (MAP) Pulse Ox O2 Delivery O2 Flow Rate FiO2 04/30/21 17:08 98.3 80 21 164/84 (110) 97 Room Air 98.3 (BAILEY PATINO APRN) EKG: EKG: [] (BAILEY PATINO APRN) Radiology/Procedures: Radiology/Procedures: [] (BAILEY PATINO APRN) Course & Med Decision Making: Course & Med Decision Making Pertinent Labs and Imaging studies reviewed. (See chart for details) 194 spoke to patient regarding laboratory results, patient is agreeable to admission, spoke to Dr. Jones and he has agreed to admit patient. Will order some antibiotics and pain medication for the patient at this time. (BAILEY PATINO APRN) Course & Med Decision Making Patients Care and treatment plan provided by ER Nurse Practitioner. I was available for consult. Patient's chart reviewed. (ANGELIA BABB DO) Dragon Disclaimer: Dragon Disclaimer: This electronic medical record was generated, in whole or in part, using a voice recognition dictation system. (BAILEY PATINO APRN) Departure Departure Impression: Primary Impression: Cellulitis Qualified Codes: L03.115 - Cellulitis of right lower limb Disposition: ADMITTED INPATIENT Admitting Physician: KULWANT (BAILEY PATINO APRN) Referrals: LESVIA BURGOS MD (PCP) BAILEY PATINO APRN Apr 30, 2021 17:41 ANGELIA BABB DO May 01, 2021 18:33
[2021-04-30 18:48] LABS: BASO # 0.1 x10^3/uL (0.0-0.2); BASO % 2 % (0-3); EOS # 0.1 x10^3/uL (0.0-0.7); EOS % 2 % (0-3); HEMATOCRIT 42.7 % (39.0-53.0); HEMOGLOBIN 14.8 g/dL (13.0-17.5); LYMPH % 31 % (24-48); MEAN CORPUSCULAR HEMOGLOBIN 33 pg (25-35); MEAN CORPUSCULAR HGB CONC 35 g/dL (31-37); MEAN CORPUSCULAR VOLUME 96 fL (79-100); MONO # 0.5 x10^3/uL (0.0-1.1); MONO % 7 % (0-9); NEUT # 3.8 x10^3/uL (1.8-7.7); NEUT % 57 % (31-73); PLATELET COUNT 204 x10^3/uL (140-400); RED BLOOD COUNT 4.44 x10^6/uL (4.30-5.70); RED CELL DISTRIBUTION WIDTH 13.1 % (11.5-14.5); WHITE BLOOD COUNT 6.6 x10^3/uL (4.0-11.0)
[2021-04-30 19:09] LABS: GFR 74.8
[2021-04-30 19:24] LABS: ALBUMIN 4.2 g/dL (3.4-5.0); ALBUMIN/GLOBULIN RATIO 1.1 (1.0-1.7); TOTAL BILIRUBIN 0.7 mg/dL (0.2-1.0); TOTAL PROTEIN 8.2 g/dL (6.4-8.2)
[2021-04-30] MEDS ORDERED: MORPHINE SULFATE 2 MG/ML INJ. IVP PRN (19:45)
[2021-04-30] MEDS ORDERED: PIPERACILLIN/TAZOBACTAM 4.5 GM in IV DEXTROSE 5% 100ML 100 ML IV ONE (20:00)
[2021-04-30] MEDS ORDERED: MORPHINE SULFATE 4 MG/ML INJ. IVP ONE (20:00)
[2021-04-30 23:40] VITALS: BP 150/79
[2021-05-01 03:34] VITALS: BP 113/68
[2021-05-01 07:15] VITALS: BP 130/70
--- NOTE | 2021-05-01 08:45 | PDOC1 ---
History and Physical Date of Service: DOS: DATE: 05/01/21 TIME: 08:45 History of Present Illness: HPI: Patient is a 66-year-old male that presented overnight with right foot ce llulitis. Patient states a couple days ago he started noticing some redness in his right foot and is progressively gotten worse. He states since he has a history of cellulitis he decided to come in and be evaluated. 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 He says that is not new. He says he does own a couple of cats and he is not sure if maybe one of the cats has scratched him on his foot as well. Past Medical/Surgical History: PMH/PSH: Past Medical History: Bipolar, CVA, GERD, High Cholesterol, Hypothyroid, Hepatitis, Prostatitis Additional Past Medical Histor: TRUNCAL ATAXIA, ENCEPHALOPATHY,URINARY OBS,INSOMNIA, NEUROPATHY, LITHIUMTOX Past Surgical History: Appendectomy Smoking Status: Former Smoker Alcohol Use: Rarely Drug Use: None Allergies: Allergies: Coded Allergies: lithium (Verified Allergy, Intermediate, 04/24/21) Family History: Family History: HTN Current Medications: Current Medications Current Medications Piperacillin Sod/ Tazobactam Sod 4.5 gm/Dextrose 100 ml @ 200 mls/hr 1X ONCE IV Last administered on 04/30/21at 20:24; Start 04/30/21 at 20:00; Stop 04/30/21 at 20:29; Status DC Morphine Sulfate (Morphine Sulfate) 2 mg PRN Q2HR PRN IVP PAIN; Start 04/30/21 at 19:45; Stop 05/01/21 at 19:44 Morphine Sulfate (Morphine Sulfate) 4 mg 1X ONCE IVP Last administered on 04/30/21at 20:20; Start 04/30/21 at 20:00; Stop 04/30/21 at 20:01; Status DC Active Scripts Active Reported Gabapentin (Gabapentin) 400 Mg Capsule 400 Mg PO TID Ketoconazole 15 Gm Cream..g. 1 Yudy TP BID PRN Senna (Sennosides) 8.6 Mg Tablet 8.6 Mg PO HS Hydrocodone-Ibuprofen 7.5-200 (Hydrocodone/Ibuprofen) 1 Each Tablet 1 Tab PO QID PRN Levothyroxine Sodium 75 Mcg Tablet 75 Mcg PO DAILYAC Pantoprazole Sodium (Pantoprazole Sodium) 40 Mg Tablet.dr 40 Mg PO DAILY Trazodone Hcl 50 Mg Tablet 50 Mg PO HS Simvastatin 40 Mg Tablet 40 Mg PO HS Seroquel (Quetiapine Fumarate) 100 Mg Tablet 100 Mg PO HS ROS: Review of Systems Review of System unless noted in HPI a 14pt ROs was negative Physical Exam: Vital Signs: Vital Signs Date Time Temp Pulse Resp B/P (MAP) Pulse Ox O2 Delivery O2 Flow Rate FiO2 05/01/21 07:15 97.8 70 20 130/70 (90) 96 Room Air 97.8 Physcial Exam: GEN: No apparent distress. Alert and oriented HEENT: Normal cephalic, atraumatic, external auditory canals are patent EYES: Extraocular muscles are intact, pupil are equally round and reactive to light and accommodation MUSCULOSKELETAL: Well developed , well nourished, good range of motion ENDOCRINE: No thyromegaly was palpated LYMPHATICS: No cervical chain or axillary nodes were noted HEMATOPOIETIC: No bruising NECK: Supple, no JVD, no thyromegaly was noted LUNGS: Clear to auscultation in all lung chawla without rhonchi or wheezing HEART: RRR, S!, S2 present. Peripheral pulses intact, no obvious murmurs noted ABDOMEN: Soft, nontender. Positive bowel sounds, no organomegaly, normal bowel sounds EXTREMITIES: Without clubbing, cyanosis, or edema. Pedal pulses intact. Neg ative Homans sign NEUROLOGIC: Normal speech and tone. A&O x 3, moves all extremities, no obvious focal deficits PSYCHIATRIC: Normal affect, normal mood. Stable SKIN: No ulcerations or rashes, good skin turgor, no jaundice VASCULAR: Good capillary refill, neurovascular bundle appears to be intact Labs: Labs: Laboratory Tests Test 04/30/21 17:25 White Blood Count 6.6 x10^3/uL (4.0-11.0) Red Blood Count 4.44 x10^6/uL (4.30-5.70) Hemoglobin 14.8 g/dL (13.0-17.5) Hematocrit 42.7 % (39.0-53.0) Mean Corpuscular Volume 96 fL (79-100) Mean Corpuscular Hemoglobin 33 pg (25-35) Mean Corpuscular Hemoglobin Concent 35 g/dL (31-37) Red Cell Distribution Width 13.1 % (11.5-14.5) Platelet Count 204 x10^3/uL (140-400) Neutrophils (%) (Auto) 57 % (31-73) Lymphocytes (%) (Auto) 31 % (24-48) Monocytes (%) (Auto) 7 % (0-9) Eosinophils (%) (Auto) 2 % (0-3) Basophils (%) (Auto) 2 % (0-3) Neutrophils # (Auto) 3.8 x10^3/uL (1.8-7.7) Lymphocytes # (Auto) 2.0 x10^3/uL (1.0-4.8) Monocytes # (Auto) 0.5 x10^3/uL (0.0-1.1) Eosinophils # (Auto) 0.1 x10^3/uL (0.0-0.7) Basophils # (Auto) 0.1 x10^3/uL (0.0-0.2) Sodium Level 142 mmol/L (136-145) Potassium Level 4.0 mmol/L (3.5-5.1) Chloride Level 102 mmol/L (98-107) Carbon Dioxide Level 27 mmol/L (21-32) Anion Gap 13 (6-14) Blood Urea Nitrogen 11 mg/dL (8-26) Creatinine 1.0 mg/dL (0.7-1.3) Estimated GFR (Cockcroft-Gault) 74.8 BUN/Creatinine Ratio 11 (6-20) Glucose Level 108 mg/dL (70-99) Lactic Acid Level 1.8 mmol/L (0.4-2.0) Calcium Level 9.0 mg/dL (8.5-10.1) Total Bilirubin 0.7 mg/dL (0.2-1.0) Aspartate Amino Transf (AST/SGOT) 62 U/L (15-37) Alanine Aminotransferase (ALT/SGPT) 97 U/L (16-63) Alkaline Phosphatase 79 U/L (46-116) C-Reactive Protein, Quantitative 6.1 mg/L (0-3.3) Total Protein 8.2 g/dL (6.4-8.2) Albumin 4.2 g/dL (3.4-5.0) Albumin/Globulin Ratio 1.1 (1.0-1.7) Laboratory Tests Test 04/30/21 17:25 White Blood Count 6.6 x10^3/uL (4.0-11.0) Red Blood Count 4.44 x10^6/uL (4.30-5.70) Hemoglobin 14.8 g/dL (13.0-17.5) Hematocrit 42.7 % (39.0-53.0) Mean Corpuscular Volume 96 fL (79-100) Mean Corpuscular Hemoglobin 33 pg (25-35) Mean Corpuscular Hemoglobin Concent 35 g/dL (31-37) Red Cell Distribution Width 13.1 % (11.5-14.5) Platelet Count 204 x10^3/uL (140-400) Neutrophils (%) (Auto) 57 % (31-73) Lymphocytes (%) (Auto) 31 % (24-48) Monocytes (%) (Auto) 7 % (0-9) Eosinophils (%) (Auto) 2 % (0-3) Basophils (%) (Auto) 2 % (0-3) Neutrophils # (Auto) 3.8 x10^3/uL (1.8-7.7) Lymphocytes # (Auto) 2.0 x10^3/uL (1.0-4.8) Monocytes # (Auto) 0.5 x10^3/uL (0.0-1.1) Eosinophils # (Auto) 0.1 x10^3/uL (0.0-0.7) Basophils # (Auto) 0.1 x10^3/uL (0.0-0.2) Sodium Level 142 mmol/L (136-145) Potassium Level 4.0 mmol/L (3.5-5.1) Chloride Level 102 mmol/L (98-107) Carbon Dioxide Level 27 mmol/L (21-32) Anion Gap 13 (6-14) Blood Urea Nitrogen 11 mg/dL (8-26) Creatinine 1.0 mg/dL (0.7-1.3) Estimated GFR (Cockcroft-Gault) 74.8 BUN/Creatinine Ratio 11 (6-20) Glucose Level 108 mg/dL (70-99) Lactic Acid Level 1.8 mmol/L (0.4-2.0) Calcium Level 9.0 mg/dL (8.5-10.1) Total Bilirubin 0.7 mg/dL (0.2-1.0) Aspartate Amino Transf (AST/SGOT) 62 U/L (15-37) Alanine Aminotransferase (ALT/SGPT) 97 U/L (16-63) Alkaline Phosphatase 79 U/L (46-116) C-Reactive Protein, Quantitative 6.1 mg/L (0-3.3) Total Protein 8.2 g/dL (6.4-8.2) Albumin 4.2 g/dL (3.4-5.0) Albumin/Globulin Ratio 1.1 (1.0-1.7) Assessment/Plan Assessment/Plan RLE cellulitis, Hx CVA wheelchair bound, gerd, hpld, hypothyroid -presented with erythema to right foot worsening -findings consistent with cellulitis -appears pretty mild right now will try just Keflex for treatment -wound care evaluated -resume home meds as indicated -dvt ppx Justifications for Admission Other Justification LAURIE MENDEZ MD May 01, 2021 08:45
[2021-05-01] MEDS ORDERED: CALCIUM CARBONATE 500 MG TAB.CHEW PO PRN (09:00)
[2021-05-01] MEDS ORDERED: ZOLPIDEM 5 MG TABLET. PO PRN (09:00)
[2021-05-01] MEDS ORDERED: ACETAMINOPHEN 325 MG TABLET. PO PRN (09:00)
[2021-05-01] MEDS ORDERED: ELECTROLYTE (NON-ICU) PROTOCOL. MC PRN (09:00)
[2021-05-01] MEDS ORDERED: ONDANSETRON PF 4 MG/2 ML VIAL. IVP PRN (09:00)
[2021-05-01] MEDS ORDERED: HYDROcodone/APAP 7.5/325MG 1 TAB TABLET PO PRN (09:15)
[2021-05-01] MEDS: GABAPENTIN 400 MG CAPSULE. PO SCH ×3 (09:16→21:44)
[2021-05-01] MEDS: LEVOTHYROXINE 75 MCG TABLET PO SCH (09:16)
[2021-05-01] MEDS: PANTOPRAZOLE 40 MG TABLET.DR. PO SCH (09:16)
[2021-05-01] MEDS: CEPHALEXIN 250 MG CAPSULE. PO SCH ×2 (09:16→21:44)
[2021-05-01] MEDS: SENNOSIDES/DOCUSATE 8.6/50MG TABLET. PO SCH ×2 (09:19→21:43)
--- NOTE | 2021-05-01 10:45 | NUR ---
Wound Care Pt seen for wound care consultation re: R foot/leg cellulitis. Pt has no open wounds, but bright red and dry scaly skin on RLE and ankle. Redness is resolving from marking around ankle, skin remains warm. Lotion applied to dry skin and leg elevated on pillows. Wound care will sign off at this time.
[2021-05-01 11:15] VITALS: BP 134/88
--- NOTE | 2021-05-01 13:34 | NUR ---
SW following. Discussed with RN, pt from home alone, room air, regular diet. Wound Care consulted. Pt uses a motorized wheelchair at home. RN advised no SW needs at this time. SW will continue to follow.
[2021-05-01] MEDS: HEPARIN for SUB-Q USE 5,000 UNIT/ML VIAL. SQ SCH ×2 (14:33→21:48)
[2021-05-01 15:02] VITALS: BP 117/57
[2021-05-01 19:00] VITALS: BP 109/62
[2021-05-01] MEDS ORDERED: SIMVASTATIN 40 MG TABLET. PO SCH (21:00)
[2021-05-01] MEDS ORDERED: traZODone 50 MG TABLET. PO SCH (21:00)
[2021-05-01] MEDS ORDERED: QUEtiapine 100 MG TABLET. PO SCH (21:00)
[2021-05-01 23:00] VITALS: BP 113/63
[2021-05-02 03:00] VITALS: BP 98/53
[2021-05-02] MEDS: HEPARIN for SUB-Q USE 5,000 UNIT/ML VIAL. SQ SCH (06:18)
[2021-05-02 07:00] VITALS: BP 106/59
[2021-05-02] MEDS: LEVOTHYROXINE 75 MCG TABLET PO SCH (08:19)
[2021-05-02] MEDS: PANTOPRAZOLE 40 MG TABLET.DR. PO SCH (08:19)
[2021-05-02] MEDS: CEPHALEXIN 250 MG CAPSULE. PO SCH (08:19)
[2021-05-02] MEDS: GABAPENTIN 400 MG CAPSULE. PO SCH (08:19)
[2021-05-02] MEDS: SENNOSIDES/DOCUSATE 8.6/50MG TABLET. PO SCH (08:19)
[2021-05-02] MEDS ORDERED: CEPH250C PO (09:17)
--- NOTE | 2021-05-02 10:05 | NUR ---
SW following. Discussed with RN, discharge order for home with self care. RN advised no SW needs.
--- NOTE | 2021-05-02 11:20 | NUR ---
Pt. discharged to home, abx rx sent to pharmacy. Pt verbalized understanding of discharge instructions.
--- NOTE | 2021-05-02 18:54 | PDOC3 ---
[facility]-Discharge Summary Date of Admission: Date of Admission: May 01, 2021 Date of Discharge: Date of Discharge: May 02, 2021 Hospital Course: Hospital Course: Patient is a 66-year-old male that presented overnight with right foot cellulitis. Patient states a couple days ago he started noticing some redness in his right foot and is progressively gotten worse. He states since he has a history of cellulitis he decided to come in and be evaluated. 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 He says that is not new. He says he does own a couple of cats and he is not sure if maybe one of the cats has scratched him on his foot as well. 05/02 Patient evaluated examined at bedside. Cellulitis notably improved. Will discharge home today to complete oral antibiotics Keflex. Patient agreeable. Greater than 30 minutes spent on discharge. 18 minutes advance care planning. Disposition: Disposition/Orders: D/C to Home Activity: Activity: Resume previous activity Diet: Diet: Regular Medications: Home Meds Active Scripts Cephalexin (KEFLEX) 250 Mg Capsule, 500 MG PO BID for cellulitis for 7 Days, #28 CAP Prov:LAURIE MENDEZ MD 05/02/21 Reported Medications Gabapentin (GABAPENTIN ) 400 Mg Capsule, 400 MG PO TID for NEUROGENIC PAIN, CAP 01/08/19 Ketoconazole (KETOCONAZOLE) 15 Gm Cream..g., 1 DEL TP BID PRN for ITCHING, #60 GM 1 Refill 01/08/19 Sennosides (SENNA) 8.6 Mg Tablet, 8.6 MG PO HS for constipation, TAB 01/08/19 Hydrocodone/Ibuprofen (HYDROCODONE-IBUPROFEN 7.5-200) 1 Each Tablet, 1 TAB PO QID PRN for PAIN, TAB 0 Refills 03/20/16 Levothyroxine Sodium (LEVOTHYROXINE SODIUM) 75 Mcg Tablet, 75 MCG PO DAILYAC for THYROID SUPPLEMENT, #30 TAB 0 Refills 08/30/15 Pantoprazole Sodium (PANTOPRAZOLE SODIUM ) 40 Mg Tablet.dr, 40 MG PO DAILY, TAB 4/28/16 Trazodone Hcl (TRAZODONE HCL) 50 Mg Tablet, 50 MG PO HS for sleep, TAB 08/30/15 Simvastatin (SIMVASTATIN) 40 Mg Tablet, 40 MG PO HS for FOR CHOLESTEROL, #30 TAB 0 Refills 08/30/15 Quetiapine Fumarate (SEROQUEL) 100 Mg Tablet, 100 MG PO HS, TAB 08/30/15 Scheduled Cephalexin (Keflex), 500 MG PO BID Gabapentin (Gabapentin ), 400 MG PO TID, (Reported) Levothyroxine Sodium (Levothyroxine Sodium), 75 MCG PO DAILYAC, (Reported) Pantoprazole Sodium (Pantoprazole Sodium ), 40 MG PO DAILY, (Reported) Quetiapine Fumarate (Seroquel), 100 MG PO HS, (Reported) Sennosides (Senna), 8.6 MG PO HS, (Reported) Simvastatin (Simvastatin), 40 MG PO HS, (Reported) Trazodone Hcl (Trazodone Hcl), 50 MG PO HS, (Reported) Scheduled PRN Hydrocodone/Ibuprofen (Hydrocodone-Ibuprofen 7.5-200), 1 TAB PO QID PRN for P AIN, (Reported) Ketoconazole (Ketoconazole), 1 DEL TP BID PRN for ITCHING, (Reported) Justicifation of Admission Dx: Justifications for Admission: Justification of Admission Dx: Yes (cellulitis) LAURIE MENDEZ MD May 02, 2021 18:54
== END 2021-05-02 11:22 | disposition home or self-care (01) ==
LOC: ER 11:12 → ED HOLD 19:45 → INTOOBSV 19:45 → 4 NORTH 21:00
PROVIDERS: ADMIT Student in an Organized Health Care Education/Training Program; ATTEND Student in an Organized Health Care Education/Training Program
DX: L03.115 Cellulitis of right lower limb (principal); F31.9 Bipolar disorder, unspecified; E78.00 Pure hypercholesterolemia, unspecified; E03.9 Hypothyroidism, unspecified; K21.9 Gastro-esophageal reflux disease without esophagitis; N41.9 Inflammatory disease of prostate, unspecified; Z86.19 Personal history of other infectious and parasitic diseases; Z90.49 Acquired absence of other specified parts of digestive tract; Z86.73 Personal history of transient ischemic attack (TIA), and cerebral infarction without residual deficits; Z87.891 Personal history of nicotine dependence; Z99.3 Dependence on wheelchair; Z79.899 Other long term (current) drug therapy; Z98.890 Other specified postprocedural states
CPT/HCPCS: 36415; 80053; 83605; 85025; 86140; 87040; 96365; 96372; 96375; 99284; G0378; J1644; J2270; J2543; J7060; G0379; 99285-25